=== PATIENT | male | born 1960 | race African-American/Black ===

== ENCOUNTER 2016-11-13 21:14 | Emergency (ER) | payer BC, OTHER ==
[2016-11-14 00:21] LABS: ABSOLUTE BASOPHILS # (AUTO) 0.1 10^3/uL (0.0-0.2); ABSOLUTE EOSINOPHILS # (AUTO) 0.3 10^3/uL (0.0-0.6); ABSOLUTE LYMPHOCYTES (AUTO) 2.1 10^3/uL (0.5-4.7); ABSOLUTE NEUT (AUTO) 8.3 10^3/uL (1.7-8.2); BASOPHILS % (AUTO) 0.7 % (0-2); EOSINOPHILS % (AUTO) 2.5 % (0-6); HEMATOCRIT 41.9 % (37.9-51.0); HEMOGLOBIN 14.2 g/dL (13.5-17.0); HGB HCT DIFFERENCE 0.7; LYMPHOCYTES % (AUTO) 17.7 % (13-45); MEAN CORPUSCULAR HEMOGLOBIN 28.9 pg (27.0-33.4); MEAN CORPUSCULAR VOLUME 85 fl (80-97); MONOCYTES % (AUTO) 8.2 % (3-13); RED BLOOD COUNT 4.92 10^6/uL (4.35-5.55); RED CELL DISTRIBUTION WIDTH 13.3 % (11.5-14.0); SEGMENTED NEUTROPHILS % (AUTO) 70.9 % (42-78); WHITE BLOOD COUNT 11.7 10^3/uL (4.0-10.5)
[2016-11-14 00:38] LABS: ANION GAP 15 (5-19); BLOOD UREA NITROGEN 9 mg/dL (7-20); CALCIUM 9.3 mg/dL (8.4-10.2); CARBON DIOXIDE 27 mmol/L (22-30); CHLORIDE 101 mmol/L (98-107); CREATINE KINASE 149 U/L (55-170); CREATININE RESULT 0.84 mg/dL (0.52-1.25); GLUCOSE 109 mg/dL (75-110); POTASSIUM 4.3 mmol/L (3.6-5.0); SODIUM 142.8 mmol/L (137-145)
[2016-11-14 00:53] LABS: TROPONIN I < 0.012 ng/mL
--- NOTE | 2016-11-14 01:26 | ER Document Report ---
ED General - General Mode of Arrival: Ambulatory Information source: Patient TRAVEL OUTSIDE OF THE [place] IN LAST 30 DAYS: No - HPI Patient complains to provider of: cough Associated symptoms: Other - See above <ANNABELLE GRANADOS - Last Filed: 11/14/16 03:28> <LAURITA HERNANDEZ - Last Filed: 11/15/16 21:23> - General Chief Complaint: Cough Stated Complaint: cough Notes: Patient is a 56 year old male, with a past medical history including gout, who presents to the emergency department complaining of a cough with yellow sputum onset 5 days ago. Patient also complains of low back pain, joint pain, chest pain secondary to cough, fever, and chills. Patient denies nausea, vomiting, and diarrhea. Patient states that he does not have a PCP but went to urgent care 3 weeks ago to have his gout assessed. Patient states that all of his medications for gout have . (ANNABELLE GRANADOS) - Related Data Allergies/Adverse Reactions: No Known Allergies Allergy (Verified 11/14/16 01:40) Past Medical History - General Information source: Patient - Social History Smoking Status: Unknown if Ever Smoked Family History: Reviewed & Not Pertinent Musculoskeltal Medical History: Reports Hx Gout <ANNABELLE GRANADOS - Last Filed: 11/14/16 03:28> Review of Systems - Review of Systems Constitutional: See HPI, Chills, Fever EENT: No symptoms reported Cardiovascular: See HPI, Chest pain Respiratory: See HPI, Cough, Sputum Gastrointestinal: denies: Diarrhea, Nausea, Vomiting Genitourinary: No symptoms reported Male Genitourinary: No symptoms reported Musculoskeletal: See HPI, Other - joint pain Skin: No symptoms reported Hematologic/Lymphatic: No symptoms reported Neurological/Psychological: No symptoms reported -: Yes All other systems reviewed and negative <ANNABELLE GRANADOS - Last Filed: 11/14/16 03:28> Physical Exam - Vital signs Interpretation: Normal - General General appearance: Appears well, Alert - HEENT Head: Normocephalic, Atraumatic - Respiratory Respiratory status: No respiratory distress Chest status: Nontender Breath sounds: Normal Chest palpation: Normal - Cardiovascular Rhythm: Regular Heart sounds: Normal auscultation Murmur: No - Abdominal Inspection: Normal Distension: No distension Bowel sounds: Normal Tenderness: Nontender Organomegaly: No organomegaly - Extremities General upper extremity: Normal inspection General lower extremity: Normal inspection - Neurological Neuro grossly intact: Yes Cognition: Normal Orientation: AAOx4 Matt Coma Scale Eye Opening: Spontaneous Kinsman Coma Scale Verbal: Oriented Kinsman Coma Scale Motor: Obeys Commands Matt Coma Scale Total: 15 Speech: Normal - Psychological Associated symptoms: Normal affect, Normal mood - Skin Skin Temperature: Warm Skin Moisture: Dry Skin Color: Normal <ANNABELLE GRANADOS - Last Filed: 11/14/16 03:28> Course - Laboratory Result Diagrams: 11/13/16 23:58 11/13/16 23:58 <ANNABELEL GRANADOS - Last Filed: 11/14/16 03:28> - Laboratory Result Diagrams: 11/13/16 23:58 11/13/16 23:58 <LAURITA HERNANDEZ - Last Filed: 11/15/16 21:23> - Re-evaluation Re-evalutation: 11/14/16 01:35 Patient presents emergency, chief complaint of 3-4 day history of cough chest hurts with coughing and body aches. Specifically when he states bodyaches he says his knee. He went to the urgent care 2 weeks ago was diagnosed with gout but is out of his medication. He does not see a primary care physician. He denies any blurred vision double vision or strokelike symptoms. No neck pain stiffness or trauma. No cardiac chest pain or pain with exertion shortness breath or diaphoresis. No nausea vomiting abdominal pain on physical exam is well-appearing nontoxic in no acute distress normal neurological examination coughing mildly lungs are clear abdomen is soft no joint redness swelling rashes. Acute laboratory evaluation negative for acute pathology chest x-ray negative diagnosis acute bronchitis also refill on his gout medication. I've given him a family doctor for follow-up in 3-4 days and discussed reasons for ED return sooner (LAURITA HERNANDEZ) - Vital Signs Vital signs: Temp Pulse Resp BP Pulse Ox 99.1 F 93 18 145/89 H 92 11/14/16 01:46 11/14/16 01:46 11/14/16 01:46 11/14/16 01:46 11/14/16 01:46 - Laboratory Laboratory results interpreted by me: 11/13/16 23:58 WBC 11.7 H Absolute Neutrophils 8.3 H Discharge <ANNABELLE GRANADOS - Last Filed: 11/14/16 03:28> <LAURITA HERNANDEZ - Last Filed: 11/15/16 21:23> - Discharge Clinical Impression: myalgias Acute bronchitis Qualifiers: Bronchitis organism: unspecified organism Qualified Code(s): J20.9 - Acute bronchitis, unspecified Condition: Stable Disposition: HOME, SELF-CARE Additional Instructions: Bronchitis You have acute bronchitis. This disease is an infection or inflammation of the air passageways in your lungs. Symptoms usually include cough, low grade fever, shortness of breath, and wheezing. The cough usually persists for a couple of weeks. Most cases of bronchitis get better without antibiotics. We prescribe antibiotics when we believe bacteria are damaging your airways, or if there's high risk the bronchitis will worsen into pneumonia. Increase your fluid intake. A cool mist humidifier may make your lungs more comfortable. An expectorant (cough medicine that loosens phlegm) can help. If you smoke, STOP!!! Recovery from bronchitis can be somewhat slow, but you should see improvement within a day or two. Repeated episodes of bronchitis may result in lung damage -- for example, chronic bronchitis, recurrent pneumonias, or emphysema. Call the doctor if you develop increasing fever, shortness of breath, chest pain, bloody sputum, or otherwise worsen. If you have not improved at all after several days, contact the physician. Gout You have been diagnosed as having gout. Gout is a problem caused by an excess of uric acid, a natural chemical found in the body. The cause of this disease is unknown. Gout arthritis occurs when crystals of uric acid form in the joints. The big toe is the most common joint involved, but any joint can become affected. Persons with gout may also form uric acid kidney stones, resulting in flank pain and blood in the urine. Nodules of uric acid may form under the skin. The first step of treatment is to decrease the inflammation in the joint with antiinflammatory medication. Medication to lower the uric acid level in the blood may then be prescribed. This medication should be taken regularly, as any sudden change in dosage may provoke an attack of gout. Some foods, such as red meat, can provoke an attack in some gout sufferers. Call the doctor if new symptoms arise, or if you do not improve. Prescriptions: Albuterol Sulfate [Proair HFA Inhalation Aerosol 8.5 gm MDI] 2 puff IH Q4H PRN # 1 mdi PRN Reason: Allopurinol [Zyloprim 100 mg Tablet] 100 mg PO DAILY #30 tablet Referrals: ELY BECERRA MD [COMMUNITY BASED STAFF] - Follow up in 3-5 days (Call for an appointment to be seen in follow-up in 3-5 days return for increasing worsening or new symptoms) Scribe Attestation: 11/15/16 21:22 i personally performed the services described in the documentation, reviewed the documentation recorded by the scribe in my presence and accurately and completely records my words and actions (LAURITA HERNANDEZ) Scribe Documentation - Scribe Written by Ermelinda:: ermelinda Galeana, 11/14/16, [id number] acting as scribe for :: Curtis <ANNABELLE GRANADOS - Last Filed: 11/14/16 03:28>
[2016-11-14 01:50] VITALS: BP 145/89
--- NOTE | 2016-11-14 08:43 | EKG REPORT ---
SEVERITY:- ABNORMAL ECG - SINUS RHYTHM ABNRM R PROG, CONSIDER ASMI OR LEAD PLACEMENT : Confirmed by: Darline Gama 14-Nov-2016 08:43:01
== END 2016-11-14 01:57 | disposition home or self-care (01) ==
LOC: ER 21:14
DX: J20.9 Acute bronchitis, unspecified (principal); M10.9 Gout, unspecified; R05 Cough; M54.5 Low back pain; R07.89 Other chest pain; M25.50 Pain in unspecified joint; M79.1 Myalgia; R50.9 Fever, unspecified
CPT/HCPCS: 36415; 71010; 80048; 82550; 83880; 84484; 85025; 87804; 93005; 93010; 99284

== ENCOUNTER 2019-08-10 11:37 | Inpatient (IN) | payer BC, OTHER ==
[2019-08-10] MEDS ORDERED: IBUPROFEN 800 MG TABLET PO ONE (11:44)
[2019-08-10] MEDS ORDERED: VANCOMYCIN HCL INJ 1000 MG VIAL IV ONE ×2 (11:44→12:34)
--- NOTE | 2019-08-10 11:45 | ER Document Report ---
ED Medical Screen (RME) - General Chief Complaint: Abscess Stated Complaint: POSIBLE ABSCESS Time Seen by Provider: 08/10/19 11:42 TRAVEL OUTSIDE OF THE [place] IN LAST 30 DAYS: No - HPI Notes: 08/10/19 11:45 Patient is a 58-year-old male with no significant past medical history who presents complaining of abscess and infection that began in his axilla and is spread to his chest and into his upper arm over the past several days. Denies drug allergies. He is able to eat and drink without difficulty. He is urinating normally. Septic work-up initiated. I have treated and performed a rapid initial assessment of this patient. A comprehensive ED assessment and evaluation of the patient, analysis of test results and completion of medical decision making process will be conducted by additional ED providers. PHYSICAL EXAMINATION: GENERAL: Well-appearing, well-nourished and in no acute distress. A&Ox4. Answers questions appropriately. Skin: Patient has a very large area of cellulitis and infection to his axilla incorporating the right lateral chest as well as his right upper arm. - Related Data Allergies/Adverse Reactions: No Known Allergies Allergy (Verified 11/14/16 01:40) Past Medical History Renal/ Medical History: Denies: Hx Peritoneal Dialysis Musculoskeltal Medical History: Reports Hx Gout
[2019-08-10] MEDS ORDERED: SUCCINYLCHOLINE CHLORIDE INJ 200 MG/10 ML VIAL ONE (12:00)
[2019-08-10] MEDS: NORMAL SALINE 1000 ML 1,000 ML IV PRN ×2 (12:19→12:31)
[2019-08-10 12:29] LABS: HEMATOCRIT 43.4 % (37.9-51.0); HEMOGLOBIN 14.6 g/dL (13.5-17.0); MEAN CORPUSCULAR HEMOGLOBIN 29.4 pg (27.0-33.4); MEAN CORPUSCULAR HGB CONC 33.7 g/dL (32.0-36.0); MEAN CORPUSCULAR VOLUME 87 fl (80-97); PLATELET COUNT 279 10^3/uL (150-450); RED BLOOD COUNT 4.98 10^6/uL (4.35-5.55); RED CELL DISTRIBUTION WIDTH 12.6 % (11.5-14.0); WHITE BLOOD COUNT 16.7 10^3/uL (4.0-10.5)
[2019-08-10 12:30] LABS: VENOUS BLOOD BASE EXCESS 4.1 mmol/L; VENOUS BLOOD HCO3 27.1 mmol/L (20-32); VENOUS BLOOD PH 7.5 (7.30-7.42)
[2019-08-10 12:33] LABS: INTERNATIONAL RATION (INR) 1.12; PROTHROMBIN TIME 14.5 SEC (11.4-15.4)
[2019-08-10] MEDS ORDERED: HYDROMORPHONE HCL INJ/PF 2 MG/ML AMPULE IV ONE ×2 (12:34→14:55)
[2019-08-10] MEDS ORDERED: ONDANSETRON HCL INJ/PF 4 MG/2 ML SDV IV ONE (12:34)
[2019-08-10] MEDS ORDERED: PIPERACILLIN/TAZOBACTAM 3.375 GM VIAL IV ONE ×3 (12:34→21:58)
[2019-08-10] MEDS ORDERED: NORMAL SALINE 1000 ML 900 ML IV ONE (12:37)
--- NOTE | 2019-08-10 12:39 | ER Document Report ---
ED General - General Chief Complaint: Abscess Stated Complaint: POSIBLE ABSCESS Time Seen by Provider: 08/10/19 11:42 TRAVEL OUTSIDE OF THE [place] IN LAST 30 DAYS: No - HPI Notes: 58-year-old male to the emergency department with complaints of progressively worsening axillary abscess in the past week. He states that he started to develop redness to his right chest wall and to the inside of his right arm in the past couple of days after applying "boil ease" on his boil. He states that it is draining but he continues to get worse. He states that his told him that he had a subjective fever. He denies any shortness of breath. He states that he has pain where the erythema is to the right chest wall and right arm. He states that he has no past medical history. He does not take any daily med ications. He does not use IV drugs. He last ate this morning at 10 AM. His primary care physician is Dr. Talamantes. - Related Data Allergies/Adverse Reactions: No Known Allergies Allergy (Verified 11/14/16 01:40) Past Medical History - General Information source: Patient, Relative - Social History Smoking Status: Never Smoker Frequency of alcohol use: None Drug Abuse: None Lives with: Alone Family History: Reviewed & Not Pertinent Patient has suicidal ideation: No Patient has homicidal ideation: No Renal/ Medical History: Denies: Hx Peritoneal Dialysis Musculoskeletal Medical History: Reports Hx Gout Review of Systems - Review of Systems Constitutional: Fever, Malaise. denies: Chills EENT: No symptoms reported. denies: Nose congestion, Nose discharge Cardiovascular: See HPI. denies: Palpitations, Dyspnea, Syncope, Dizziness, Lightheaded Respiratory: Other - Right-sided chest wall pain; see skin. denies: Cough, Short of breath Gastrointestinal: denies: Abdominal pain, Diarrhea, Nausea, Vomiting Musculoskeletal: See HPI, Other - Right arm erythema and pain - see skin Skin: Other - erythema to the right chest wall, right axilla, right arm. abscess to the axilla Neurological/Psychological: No symptoms reported -: Yes All other systems reviewed and negative Physical Exam - Vital signs Vitals: Temp Pulse BP Pulse Ox 98.7 F 134 H 120/89 H 97 08/10/19 11:43 08/10/19 11:43 08/10/19 11:43 08/10/19 11:43 Interpretation: Tachycardic - General General appearance: Alert In distress: Moderate Notes: + moderate pain distress. patient appears ill, but is not toxic appearing - HEENT Head: Normocephalic, Atraumatic Eyes: Normal Pupils: PERRL - Respiratory Respiratory status: No respiratory distress Chest status: Tender, Pain on movement, Pain with deep breathing, Wounds - see skin further discussion of cellulitic process to chest wall. No: Accessory muscle use Breath sounds: Normal. No: Rales, Rhonchi, Stridor, Wheezing Chest palpation: Normal. No: Subcutaneous emphysema - Cardiovascular Rhythm: Regular Heart sounds: Normal auscultation Murmur: No - Abdominal Inspection: Normal Distension: No distension Bowel sounds: Normal Tenderness: Nontender. No: McBurney's point, Decker's sign, Guarding, Rebound Organomegaly: No organomegaly - Back Back: Normal, Nontender - Extremities General upper extremity: Tender - very Tender to palpation of the right arm. Patient has excruciating pain when passively manipulating the arm., Edema - + TTP and edema with erythema to the right arm from shoulder/axilla to the mid forearm. General lower extremity: Normal inspection, Nontender, Normal ROM, Normal strength, Normal temperature, Normal weight bearing - Neurological Neuro grossly intact: Yes Cognition: Normal Orientation: AAOx4 Chaplin Coma Scale Eye Opening: Spontaneous Matt Coma Scale Verbal: Oriented Matt Coma Scale Motor: Obeys Commands Matt Coma Scale Total: 15 Speech: Normal Cranial nerves: Normal Cerebellar coordination: Normal. 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 There does not appear to be any crepitus. There is an area of a small draining abscess. The area that is draining is approximately 2 cm in diameter. The erythema continues down the right arm. Predominantly it is medial and coming slightly volar on the biceps. Noted to the erythema in the biceps there is potent orange appearance to the skin. There does not appear to be any fluctuance. Again there does not appear to be any crepitus. The erythema on the arm extends all the way down to the mid forearm on the medial aspect. The erythema is not circumferential. And there is edema that is circumferential all the way to the mid forearm. It is very tender to palpation and with any sort of movement. Course - Re-evaluation Re-evalutation: 08/10/19 13:[address] Solano. Patient meets sepsis criteria with his tachycardia, leukocytosis, bandemia, lactic acidosis. Noted hyperglycemia. He has been started on an appropriately 30 cc/kg bolus of NS, covering with 1500 mg of Vanc and 3.[address] Solano examined the patient with me as well. He will certainly need admission. We have ordered a CT of the upper extremity with plan to open the window to include the right chest wall as two separate studies would have given the patient a double dose of IV contrast dye. I have reviewed this plan with the patient and his . Discussed lab findings with the patient and . When I told them about the hyperglycemia-- patient states he has been on oral DM medicines in the past but was taken off of them 6-8 months ago. Suspect he may have untreated DM. They agree with the plan. Have placed a page to the surgeon. 08/10/19 14:[address] Brasher, general surgeon on-call. He will come see the patient. He is aware of patient's lab work and sepsis. He is aware patient is getting vancomycin and Zosyn. He would like for the patient to be admitted to medicine. Spoke with Dr. Ramos, hospitalist. He accepts patient onto his service. He is aware that Dr. Brasher is going to consult. He is aware that patient meets sepsis criteria with leukocytosis, tachycardia, bandemia, lactic acidosis. He is aware that patient is gotten a 30 cc per cake fluid bolus and is also getting vancomycin and Zosyn. Updated patient and about the plan and they agree. CT results are pending but noted stranding in the right axilla and chest wall. - Vital Signs Vital signs: Temp Pulse Resp BP Pulse Ox 98.7 F 134 H 120/89 H 97 08/10/19 11:43 08/10/19 11:43 08/10/19 11:43 08/10/19 11:43 - Laboratory Result Diagrams: 08/10/19 12:00 08/10/19 12:00 Laboratory results interpreted by me: 08/10/19 08/10/19 08/10/19 12:00 12:00 12:00 WBC 16.7 H Band Neutrophils % 10 H Lymphocytes % (Manual) 6 L Abs Neuts (Manual) 14.2 H Abs Monocytes (Manual) 1.5 H VBG pH 7.50 H Sodium 129.6 L Potassium 3.3 L Chloride 87 L Creatinine 1.27 H Est GFR (MDRD) Non-Af 58 L Glucose 309 H Lactic Acid Calcium 8.1 L Direct Bilirubin 0.6 H Albumin 3.2 L 08/10/19 12:00 WBC Band Neutrophils % Lymphocytes % (Manual) Abs Neuts (Manual) Abs Monocytes (Manual) VBG pH Sodium Potassium Chloride Creatinine Est GFR (MDRD) Non-Af Glucose Lactic Acid 3.6 H Calcium Direct Bilirubin Albumin Critical Care Note - Critical Care Note Total time excluding time spent on procedures (mins): 67 Comments: 67 minutes of critical care time was spent on patient between bedside education with patient and family, consultation, and directing patient care for sepsis. Discharge - Discharge Clinical Impression: Abscess of right axilla Sepsis Qualifiers: Sepsis type: sepsis due to unspecified organism Sepsis acute organ dysfunction status: unspecified Qualified Code(s): A41.9 - Sepsis, unspecified organism Cellulitis Qualifiers: Site of cellulitis: extremity Site of cellulitis of extremity: upper extremity Laterality: right Qualified Code(s): L03.113 - Cellulitis of right upper limb Condition: Stable Disposition: ADMITTED INPATIENT Admitting Provider: Richard (Hospitalist) Unit Admitted: [facility] ED Sepsis - Sepsis Documentation Sepsis Patient: Yes - Vital Signs Interpretation: Tachycardic - Cardiovascular Peripheral Pulse Strength: Normal Capillary refill: < 3 seconds Rhythm: Tachycardia Heart Sounds: Normal auscultation, S1 appreciated, S2 appreciated - Respiratory Breath sounds: Clear Respiratory Status: No respiratory distress - Skin Skin Color: Erythema - erythema to the right chest wall and to the right arm - Bedside Cardiovascular Ultrasound Was a bedside Cardiovascular Ultrasound performed?: No - Fluid Challenge Was the patient given a fluid challenge?: No
[2019-08-10 12:47] LABS: ALBUMIN 3.2 g/dL (3.5-5.0); ALKALINE PHOSPHATASE 90 U/L (38-126); ANION GAP 17 (5-19); ASPARTATE AMINO TRANSFERASE 27 U/L (17-59); BILIRUBIN,DIRECT 0.6 mg/dL (0.0-0.4); BILIRUBIN,TOTAL 1.1 mg/dL (0.2-1.3); BLOOD UREA NITROGEN 16 mg/dL (7-20); CALCIUM 8.1 mg/dL (8.4-10.2); CARBON DIOXIDE 26 mmol/L (22-30); CHLORIDE 87 mmol/L (98-107); GLUCOSE 309 mg/dL (75-110); POTASSIUM 3.3 mmol/L (3.6-5.0); TOTAL PROTEIN 6.6 g/dL (6.3-8.2)
[2019-08-10 12:54] LABS: ABSOLUTE MONOCYTES # (MANUAL) 1.5 10^3/uL (0.1-1.4); BAND NEUTROPHILS % (MANUAL) 10 % (3-5); BASOPHILS % (MANUAL) 0 % (0-2); EOSINOPHILS % (MANUAL) 0 % (0-6); LYMPHOCYTES % (MANUAL) 6 % (13-45); MONOCYTES % (MANUAL) 9 % (3-13); SEGMENTED NEUTROPHILS % (MAN) 75 % (42-78); TOTAL CELLS COUNTED 100
[2019-08-10 12:55] LABS: PLATELET COMMENT ADEQUATE; TOXIC GRANULATION 1+; TOXIC VACUOLATION PRESENT
[2019-08-10] MEDS ORDERED: CEFTRIAXONE 1 GM/D5W RTU 1 GM/50 ML RTUPB IV ONE (13:00)
[2019-08-10] MEDS ORDERED: ACETAMINOPHEN 325 MG TABLET PO PRN (14:27)
[2019-08-10] MEDS ORDERED: NORMAL SALINE 1000 ML 1,000 ML IV PRN ×2 (14:27→18:28)
[2019-08-10] MEDS ORDERED: IPRATROPIUM/ALBUTEROL 0.5-2.5 MG/3 ML AMPUL NEB PRN (14:27)
[2019-08-10] MEDS ORDERED: ONDANSETRON HCL INJ/PF 4 MG/2 ML SDV IV PRN (14:27)
[2019-08-10] MEDS ORDERED: GLUCAGON,HUMAN RECOMB 1 MG INJ IM PRN (14:31)
[2019-08-10] MEDS ORDERED: DEXTROSE 40% GEL 15 GM TUBE PO PRN ×2 (14:31)
[2019-08-10] MEDS ORDERED: DEXTROSE 50%-WATER 25 GM/50 ML DISP.SYRIN IV PRN ×2 (14:31)
--- NOTE | 2019-08-10 14:40 | RADIOLOGY REPORT (SQ) ---
EXAM DESCRIPTION: CT RT UPPER EXTREMITY WITH COMPLETED DATE/TIME: 08/10/2019 1:16 pm REASON FOR STUDY: streaking cellulitis on right arm . Right arm and right chest swelling and rednes s. COMPARISON: None TECHNIQUE: [facility] with reformatted oblique coronal and ob lique sagittal imaging windowed for bone and soft tissues. All CT scanners at this facility use dose modulation, iterative reconstruction, and/or weight based d osing when appropriate to reduce radiation dose to as low as reasonably achievable (ALARA). [facility]: Dose Right [facility]: CareDose [facility]: Dose Right [facility]: Teradose 4D [facility]: [employer] RADIATION DOSE: CT Rad equipment meets quality standard of care and radiation dose reduction techniq ues were employed. CTDIvol: 3.9 mGy. DLP: 374 mGy-cm. mGy. LIMITATIONS: None. FINDINGS: SOFT TISSUES: There is skin thickening and subcutaneous edema involving the right axilla a nd right lateral chest wall to the level of the lower ribs. Mild subcutaneous edema and skin thicken ing involving the medial right upper arm. No focal drainable abscess. No radiopaque foreign body. Small reactive right axillary lymph nodes without abdifatah adenopathy. BONY ARCHITECTURE: No acute fracture or cortical disruption. Normal glenohumeral joint alignment. N ormal acromioclavicular alignment. No lytic or blastic bone lesion. No acute rib fractures. GLENOHUMERAL JOINT: Normal. ACROMION AND AC JOINT: Normal. ROTATOR CUFF: Unremarkable. GLENOID, LABRUM AND BICEPS: Labrum is not well visualized. Muscles have normal appearance. OTHER: No other significant finding. IMPRESSION: Diffuse skin thickening and subcutaneous edema involving the right insula, medial right upper arm, and right lateral chest wall. No focal drainable abscess or underlying bone lesion. TECHNICAL DOCUMENTATION: JOB ID: [id number] Quality ID # [id number]: Final reports with documentation of one or more dose reduction techniques (e.g., Au tomated exposure control, adjustment of the mA and/or kV according to patient size, use of iterative reconstruction technique) 2010 [employer]- All Rights Reserved Reading location - IP/workstation name: [email or web address]
--- NOTE | 2019-08-10 14:44 | PDOC H&P ---
History of Present Illness Admission Date/PCP: 08/10/19 14:18 KYE MERCHANT MD History of Present Illness: NANCY VALADEZ is a 58 year old male past medical history of diabetes not on antidiabetic, presenting to ED complaining of right axillary and right chest tenderness and swelling. Patient is stating that about 9 days ago he felt a mass in his right armpit, initially he did some warm compresses which is not resolved the mass, he noticed it was getting bigger and more tender, 4 days ago he decided to squeeze it and he noticed pus coming out of the mass and after that he noticed that the swelling and tenderness got progressively worse and extended to his right upper extremity and right chest. He is also complaining of right axillary pain 5/5, constant, worse with movement, nonradiating associated with fever and chills at home and 2 episodes of nonbloody vomiting yesterday and one episode of nonbloody diarrhea. Today he is denying any nausea, vomiting, shortness of breath, chest pain, abdominal pain, diarrhea, constipation or any urinary symptoms. Past Medical History Musculoskeltal Medical History: Reports: Gout Social History Lives with: Alone Smoking Status: Never Smoker Family History Family History: Reviewed & Not Pertinent, CAD Parental Family History Reviewed: Yes Children Family History Reviewed: Yes Sibling(s) Family History Reviewed.: Yes Medication/Allergy Home Medications: Albuterol Sulfate [Proair HFA Inhalation Aerosol 8.5 gm MDI] 2 puff IH Q4H PRN #1 mdi 11/14/16 Allopurinol [Zyloprim 100 mg Tablet] 100 mg PO DAILY #30 tablet 11/14/16 Allergies/Adverse Reactions: No Known Allergies Allergy (Verified 11/14/16 01:40) Review of Systems Review of Systems: as per hpi Physical Exam Vital Signs: Temp Pulse Resp BP Pulse Ox 98.7 F 134 H 120/89 H 97 08/10/19 11:43 08/10/19 11:43 08/10/19 11:43 08/10/19 11:43 Intake & Output 08/09/19 08/10/19 08/11/19 06:59 06:59 06:59 Intake Total 2100 Balance 2100 Weight 95.2 kg General appearance: PRESENT: no acute distress, well-developed, well-nourished Head exam: PRESENT: atraumatic, normocephalic Respiratory exam: PRESENT: clear to auscultation belinda. ABSENT: rales, rhonchi, wheezes Cardiovascular exam: PRESENT: RRR. ABSENT: diastolic murmur, rubs, systolic murmur GI/Abdominal exam: PRESENT: normal bowel sounds, soft. ABSENT: distended, guarding, mass, organolmegaly, rebound, tenderness Rectal exam: PRESENT: deferred Extremities exam: PRESENT: tenderness, other - Right axillary region extensive swelling, erythema, TTP, swelling and erythema extending proximally to the elbow and right pectoralis region. Right shoulder range of motion limited by pain. Neurovascularly intact. Results Laboratory Results: 08/10/19 12:00 08/10/19 12:00 08/10/19 08/10/19 08/10/19 12:00 12:00 12:00 WBC 16.7 H RBC 4.98 Hgb 14.6 Hct 43.4 MCV 87 MCH 29.4 MCHC 33.7 RDW 12.6 Plt Count 279 Seg Neutrophils % Not Reportable VBG pH 7.50 H VBG pCO2 36.0 VBG HCO3 27.1 VBG Base Excess 4.1 Sodium 129.6 L Potassium 3.3 L Chloride 87 L Carbon Dioxide 26 Anion Gap 17 BUN 16 Creatinine 1.27 H Est GFR ( Amer) > 60 Glucose 309 H Lactic Acid Calcium 8.1 L Total Bilirubin 1.1 AST 27 Alkaline Phosphatase 90 Total Protein 6.6 Albumin 3.2 L 08/10/19 12:00 WBC RBC Hgb Hct MCV MCH MCHC RDW Plt Count Seg Neutrophils % VBG pH VBG pCO2 VBG HCO3 VBG Base Excess Sodium Potassium Chloride Carbon Dioxide Anion Gap BUN Creatinine Est GFR ( Amer) Glucose Lactic Acid 3.6 H Calcium Total Bilirubin AST Alkaline Phosphatase Total Protein Albumin Assessment and Plan - Diagnosis (1) Abscess of right axilla Is this a current diagnosis for this admission?: Yes Plan: Extensive right axillary abscess. CT right axillary pending at the time of dictation. Surgery consulted and patient is scheduled for I&D this afternoon. Empiric IV antibiotics, n.p.o., volume resuscitation guided by volume status. (2) Sepsis Qualifiers: Sepsis type: sepsis due to unspecified organism Sepsis acute organ dysfunction status: unspecified Qualified Code(s): A41.9 - Sepsis, unspecified organism Is this a current diagnosis for this admission?: Yes Plan: Most likely due to right axillary abscess. Presented with leukocytosis with bandemia, elevated creatinine, elevated lactic acid, elevated total bilirubin and tachycardia. Admit to IMCU, aggressive volume resuscitation guided by volume status, trend lactic acid, empiric broad-spectrum IV antibiotics, blood culture, wound culture. (3) Diabetes Qualifiers: Diabetes mellitus type: type 2 Is this a current diagnosis for this admission?: Yes Plan: Uncontrolled. Not treated. No A1c available. Presented with blood glucose level of 309. Used to take oral antidiabetic but was taken off by PCP. Diabetic diet, basal, prandial and correctional insulin, hypoglycemia protocol, Accu-Chek. We will check A1c. (4) RENÉE (acute kidney injury) Is this a current diagnosis for this admission?: Yes Plan: Prerenal. Most likely due to underlying sepsis. Volume resuscitation guided by volume status, monitor electrolytes and replace as needed, avoid nephrotoxic meds.
--- NOTE | 2019-08-10 14:52 | PDOC CONSULTATION ---
Consultation Consult Date: 08/10/19 Attending physician:: GINETTE FOSTER Provider Consulted: SAWYER MARTÍNEZ Consult reason:: chest wall abscess History of Present Illness Admission Date/PCP: 08/10/19 14:18 KYE MERCHATN MD History of Present Illness: NANCY VALADEZ is a 58 year old male to the emergency department with complaints of progressively worsening axillary abscess in the past week. He states that he started to develop redness to his right chest wall and to the inside of his right arm in the past couple of days after applying "boil ease" on his boil. He states that it is draining but he continues to get worse. He states that his told him that he had a subjective fever. He denies any shortness of breath. He states that he has pain where the erythema is to the right chest wall and right arm. He states that he has no past medical history. He does not take any daily medications. He does not use IV drugs. He last ate this morning at 10 AM. His primary care physician is Dr. Talamantes. although he was taking antibyperglycemics at one point but these have been stopped. Past Medical History Musculoskeltal Medical History: Reports: Gout Social History Lives with: Alone Smoking Status: Never Smoker - Advance Directive Resuscitation Status: Full Code Family History Family History: Reviewed & Not Pertinent Parental Family History Reviewed: No Children Family History Reviewed: NA Sibling(s) Family History Reviewed.: NA Medication/Allergy Home Medications: Albuterol Sulfate [Proair HFA Inhalation Aerosol 8.5 gm MDI] 2 puff IH Q4H PRN #1 mdi 11/14/16 Allopurinol [Zyloprim 100 mg Tablet] 100 mg PO DAILY #30 tablet 11/14/16 Allergies/Adverse Reactions: No Known Allergies Allergy (Verified 11/14/16 01:40) Review of Systems Constitutional: PRESENT: anorexia, chills, fatigue Eyes: ABSENT: as per HPI, visual disturbances, other Ears: ABSENT: as per HPI, hearing changes, other Nose, Mouth, and Throat: ABSENT: as per HPI, headache(s), mouth pain, sore throat, vertigo, other Breasts: PRESENT: as per HPI Cardiovascular: ABSENT: as per HPI, chest pain, dyspnea on exertion, edema, orthropnea, palpitations, other Respiratory: ABSENT: as per HPI, cough, dyspnea, hemoptysis, sputum, other Gastrointestinal: ABSENT: as per HPI, abdominal pain, bloating, coffee ground emesis, constipation, diarrhea, dysphagia, heartburn, hematemesis, hematochezia, melena, nausea, vomiting, other Musculoskeletal: ABSENT: as per HPI, back pain, deformity, joint swelling, muscle weakness, other Integumentary: PRESENT: erythema, lesions, wounds Neurological: ABSENT: as per HPI, abnormal gait, abnormal movements, abnormal speech, confusion, convulsions, dizziness, focal weakness, frequent falls, lack of coordination, memory loss, numbness, paresthesias, restless legs, syncope, tingling, tremor(s), vertigo, weakness, other Psychiatric: ABSENT: as per HPI, anxiety, depression, hallucinations, homidical ideation, suicidal ideation, other Endocrine: ABSENT: as per HPI, cold intolerance, flushing, heat intolerance, menstrual abnormalities, polydipsia, polyphagia, polyuria, other Allergic/Immunologic: ABSENT: as per HPI, seasonal rhinorrhea, other Physical Exam Vital Signs: Temp Pulse Resp BP Pulse Ox 98.7 F 134 H 120/89 H 97 08/10/19 11:43 08/10/19 11:43 08/10/19 11:43 08/10/19 11:43 Intake & Output 08/09/19 08/10/19 08/11/19 06:59 06:59 06:59 Intake Total 2100 Balance 2100 Weight 95.2 kg General appearance: PRESENT: mild distress Head exam: PRESENT: normocephalic Eye exam: PRESENT: EOMI Ear exam: PRESENT: normal external ear exam Mouth exam: PRESENT: moist Neck exam: PRESENT: full ROM Respiratory exam: PRESENT: chest wall tenderness - large area of tense swelling over rt anterior lateral chest wall extending to axillia iwth small 1cm draining area of pus extends to medial mid forarm on right. Cardiovascular exam: ABSENT: bradycardia, clicks, diastolic murmur, gallop, irregular rhythm, RRR, rubs, +S1, +S2, systolic murmur, tachycardia, other Breast: PRESENT: Drainage, Other - as described under chest wall GI/Abdominal exam: PRESENT: soft Rectal exam: PRESENT: deferred Extremities exam: PRESENT: full ROM Musculoskeletal exam: PRESENT: full ROM Neurological exam: PRESENT: alert, awake, oriented to person, oriented to place Psychiatric exam: PRESENT: appropriate affect Skin exam: PRESENT: dry Results Laboratory Results: 08/10/19 12:00 08/10/19 12:00 08/10/19 08/10/19 08/10/19 12:00 12:00 12:00 WBC 16.7 H RBC 4.98 Hgb 14.6 Hct 43.4 MCV 87 MCH 29.4 MCHC 33.7 RDW 12.6 Plt Count 279 Seg Neutrophils % Not Reportable VBG pH 7.50 H VBG pCO2 36.0 VBG HCO3 27.1 VBG Base Excess 4.1 Sodium 129.6 L Potassium 3.3 L Chloride 87 L Carbon Dioxide 26 Anion Gap 17 BUN 16 Creatinine 1.27 H Est GFR ( Amer) > 60 Glucose 309 H Lactic Acid Calcium 8.1 L Total Bilirubin 1.1 AST 27 Alkaline Phosphatase 90 Total Protein 6.6 Albumin 3.2 L 08/10/19 12:00 WBC RBC Hgb Hct MCV MCH MCHC RDW Plt Count Seg Neutrophils % VBG pH VBG pCO2 VBG HCO3 VBG Base Excess Sodium Potassium Chloride Carbon Dioxide Anion Gap BUN Creatinine Est GFR ( Amer) Glucose Lactic Acid 3.6 H Calcium Total Bilirubin AST Alkaline Phosphatase Total Protein Albumin Impressions: Upper Extremity CT 08/10/19 12:35 IMPRESSION: Diffuse skin thickening and subcutaneous edema involving the right insula, medial right upper arm, and right lateral chest wall. No focal drainable abscess or underlying bone lesion. Assessment & Plan - Plan Summary Plan Summary: impression: large rtsided axillary abscess extending to anterior lateral chest wall and medial upper forearm plan to or for excisional debridement and drainage loss of large amts of chest wall skin as well as medial forearm skin and possible nerve damage and muscle weakness may result. need for additional surgery may occur. sepsis , , may occur pt agrees to proceed.
[2019-08-10] MEDS: INSULIN GLARGINE,HUM.REC.ANLOG 1,000 UNIT/10 ML VIAL SUBCUT SCH (15:19)
--- NOTE | 2019-08-10 15:22 | ER Document Report ---
Doctor's Note Notes: 08/10/19 15:20 Patient seen in conjunction with the physician social worker assistant. Please see her note correlate with mine. In short, this is a 58-year-old gentleman who has had a developing abscess and cellulitis to the right axillary region over the last week. On arrival he is markedly tachycardic. Physical exam reveals an abscess in the right axillary region with extensive edema to the right upper extremity and erythema and edema to the right chest wall. It is difficult to determine the extent given the history of hoff to the anterior chest wall on the left. I do not appreciate any significant crepitance Ergas on palpation, but it is markedly tender to palpation. Right upper extremity is neurovascularly intact. Laboratory investigations revealed a significant leukocytosis with bandemia. Hyponatremia is noted as well. He is given IV fluids. He is given Zosyn and vancomycin. Early surgical consult was obtained, and CT scan ordered. The patient does have an extensive cellulitic changes to the chest wall. Surgery and internal medicine will care for the patient. He will be admitted for further care, unfortunately his OR time will be delayed secondary to his non- n.p.o. status. He did have breakfast prior to arrival.
[2019-08-10] MEDS ORDERED: MEPERIDINE HCL/PF INJ 25 MG/1 ML DISP.SYRIN IV PRN (16:15)
[2019-08-10] MEDS ORDERED: PROMETHAZINE HCL INJ 25 MG/1 ML VIAL IV PRN (16:15)
[2019-08-10] MEDS ORDERED: FENTANYL CITRATE INJ/PF 100 MCG/2 ML AMPUL IV PRN ×3 (16:15)
[2019-08-10] MEDS ORDERED: DIPHENHYDRAMINE HCL 50 MG/ML VIAL IV PRN (16:15)
[2019-08-10] MEDS ORDERED: MORPHINE SULFATE 10 MG/ML INJ IV PRN (16:15)
[2019-08-10] MEDS ORDERED: FENTANYL CITRATE INJ/PF 100 MCG/2 ML AMPUL ONE (16:33)
[2019-08-10] MEDS ORDERED: MIDAZOLAM 2 MG/2 ML INJ ONE (16:33)
[2019-08-10] MEDS ORDERED: ONDANSETRON HCL INJ/PF 4 MG/2 ML SDV ONE (16:33)
[2019-08-10] MEDS ORDERED: PROPOFOL INJ 200 MG/20 ML VIAL IV ONE (16:34)
[2019-08-10] MEDS ORDERED: BUPIVACAINE HCL 0.25 % INJ/PF (2.5 MG/1 ML) 30 ML VIAL ONE (16:49)
[2019-08-10] MEDS ORDERED: POTASSI CL 20 MEQ/50 ML RIDER 20 MEQ/50 ML RTUPB IV ONE (17:30)
[2019-08-10] MEDS ORDERED: METOPROLOL TARTRATE PF/INJ 5 MG/5 ML SDV IV PRN (18:30)
[2019-08-10] MEDS ORDERED: HYDRALAZINE HCL INJ/PF 20 MG/1 ML SDV IV PRN (18:30)
[2019-08-10] MEDS ORDERED: VANCOMYCIN HCL 0 MG in DEXTROSE 5%-WATER 250 ML IV NR (18:30)
[2019-08-10] MEDS ORDERED: PIPERACILLIN/TAZOBACTAM 3.375 GM VIAL IV PRN (18:36)
--- NOTE | 2019-08-10 18:43 | Operative Report ---
Nonrecallable Operative Report DATE OF SURGERY: 08/10/19 PREOPERATIVE DIAGNOSIS: rt chest wall necrotizing fasciitis POSTOPERATIVE DIAGNOSIS: Right chest wall and upper arm necrotizing fasciitis OPERATION: Incision and drainage debridement of right chest wall necrotizing fasciitis and right upper arm fasciitis SURGEON: SAWYER MARTÍNEZ ANESTHESIA: GA TISSUE REMOVED OR ALTERED: Purulent material and fatty tissue from the right chest wall as well as some necrotic muscle from the right chest wall including portions of the pectoralis major. COMPLICATIONS: None ESTIMATED BLOOD LOSS: 200 cc INTRAOPERATIVE FINDINGS: See dictation PROCEDURE: Patient was brought to the operating room awake and alert condition placed on the upper table supine position to some general stage intubated patient had a longstanding abscess with a severe cellulitis over the right anterior lateral chest wall up into the axilla and down the medial upper arm. His arm was swollen with bullae expanding on the skin in the medial right upper arm. The axilla was prepped and draped as well as the chest wall and right arm and after appropriate timeout and site verification the procedure commenced. An elliptical incision was made just inferior to the axilla from the coracoid process on the anterior chest wall to the latissimus dorsi we then ellipsed out the punctate draining abscess in the axilla with that elliptical incision that was approximately 15 cm long by 4 cm wide once we did this a large amount of pus emanated from the subcutaneous tissue a continued down through the superficial fatty tissue with Bovie cautery until reaching the axilla and incising the clavipectoral fascia once this was done a large amount of pus exuded from the wound the muscle itself appeared to be functional and perfused but the fibrofatty tissue in the axilla was involved in this purulent material I excised it with Bovie cautery. The dissection continued down to the chest wall and I identified the pectoralis major muscle as I lifted the pectoralis major muscle and created a plane between that and the pectoralis minor muscle large amount of pus exuded from between the muscle bellies extending up to the first rib. I was able to slide my hand up between the pectoralis major muscle up towards the apex of the chest and continue to identify a purulent material that was draining a copious used a retractor to retract the pectoralis major muscle cephalad and was able to irrigate and clear out that intermuscular space Once the axilla was cleared out of the necrotic fibrofatty tissue and purulent material I turned attention to the right upper arm. The right upper arm was very swollen and tense compatible with a possible compartment syndrome there were bullae over this skin consistent with the acute swelling I made a longitudinal incision from the axillary crease down to the mid upper arm and the medial aspect once this was done there was a large amount of serous fluid that emanated from the subcutaneous tissue consistent with the swelling continued our dissection down through the fascia with a Bovie cautery once this was opened there was a moderate amount of pus that exuded from the wound that extended up towards the axilla and in fact connected with the wound in the axilla along the chest wall. This was widely open with digital dissection once this was completely open the muscle bellies were examined and they appear to be viable and perfused. The this wound was then copiously irrigated with normal saline clearing out all the purulent material and then both the wound on the medial arm and on the chest wall were packed with a Betadine soaked Kerlix gauze and then a sterile dressing was applied which completed the procedure. Estimated blood loss for the procedure was 200 cc sponge and needle counts were correct x2 patient was then transferred recovery in stable condition
[2019-08-10] MEDS: INSULIN LISPRO 100 UNIT/ML 3 ML VIAL SUBCUT SCH ×2 (20:01→21:50)
[2019-08-10 20:04] LABS: HEMATOCRIT 37.8 % (37.9-51.0); MEAN CORPUSCULAR HEMOGLOBIN 29.2 pg (27.0-33.4); MEAN CORPUSCULAR HGB CONC 33.1 g/dL (32.0-36.0); MEAN CORPUSCULAR VOLUME 88 fl (80-97); PLATELET COUNT 253 10^3/uL (150-450); RED BLOOD COUNT 4.27 10^6/uL (4.35-5.55); RED CELL DISTRIBUTION WIDTH 12.9 % (11.5-14.0); WHITE BLOOD COUNT 13.4 10^3/uL (4.0-10.5)
[2019-08-10 20:12] LABS: HEMOGLOBIN 12.5 g/dL (13.5-17.0)
[2019-08-10 20:21] LABS: ANION GAP 10 (5-19); BLOOD UREA NITROGEN 13 mg/dL (7-20); CARBON DIOXIDE 24 mmol/L (22-30); CHLORIDE 99 mmol/L (98-107); GLUCOSE 232 mg/dL (75-110); POTASSIUM 3.2 mmol/L (3.6-5.0)
[2019-08-10 20:33] LABS: ABSOLUTE LYMPHOCYTES# (MANUAL) 0.7 10^3/uL (0.5-4.7); ABSOLUTE MONOCYTES # (MANUAL) 0.4 10^3/uL (0.1-1.4); BAND NEUTROPHILS % (MANUAL) 6 % (3-5); BASOPHILS % (MANUAL) 0 % (0-2); EOSINOPHILS % (MANUAL) 0 % (0-6); LYMPHOCYTES % (MANUAL) 5 % (13-45); MONOCYTES % (MANUAL) 3 % (3-13); PLATELET COMMENT ADEQUATE; RBC MORPHOLOGY COMMENT NORMO-CYTIC/CHROMIC; SEGMENTED NEUTROPHILS % (MAN) 86 % (42-78); TOTAL CELLS COUNTED 100; TOXIC GRANULATION 1+
[2019-08-10 20:39] LABS: CALCIUM 6.7 mg/dL (8.4-10.2)
[2019-08-10] MEDS: OXYCODONE-ACETAMINOPHEN 5-325 MG TABLET PO PRN (20:41)
[2019-08-10] MEDS ORDERED: VANCOMYCIN HCL INJ 1000 MG VIAL IV PRN (20:43)
[2019-08-10] MEDS: FAMOTIDINE 20 MG TABLET PO SCH (21:48)
[2019-08-10] MEDS: PIPERACILLIN SODIUM/TAZOBACTAM 3.375 GM in NORMAL SALINE 100 ML IV SCH (21:49)
[2019-08-10] MEDS ORDERED: POTASSIUM CHLORIDE 10 MEQ TABLET.ER PO ONE (22:00)
[2019-08-10] MEDS: HYDROMORPHONE HCL INJ/PF 2 MG/ML AMPULE IV PRN (23:15)
[2019-08-11] MEDS ORDERED: VANCOMYCIN HCL 1,000 MG in DEXTROSE 5%-WATER 250 ML IV ONE (02:00)
[2019-08-11] MEDS ORDERED: INFLUENZA QUAD (6MOS+) 2019-20 VAC 0.5 ML SYR IM ONE (02:46)
[2019-08-11] MEDS: PIPERACILLIN SODIUM/TAZOBACTAM 3.375 GM in NORMAL SALINE 100 ML IV SCH ×4 (04:14→22:38)
[2019-08-11 06:30] LABS: HEMATOCRIT 34.4 % (37.9-51.0); HEMOGLOBIN 11.7 g/dL (13.5-17.0); MEAN CORPUSCULAR HEMOGLOBIN 29.5 pg (27.0-33.4); MEAN CORPUSCULAR HGB CONC 33.9 g/dL (32.0-36.0); MEAN CORPUSCULAR VOLUME 87 fl (80-97); PLATELET COUNT 229 10^3/uL (150-450); RED BLOOD COUNT 3.95 10^6/uL (4.35-5.55); RED CELL DISTRIBUTION WIDTH 12.7 % (11.5-14.0); WHITE BLOOD COUNT 14.5 10^3/uL (4.0-10.5)
[2019-08-11 06:53] LABS: CHOLESTEROL 82.17 mg/dL (0-200); TRIGLYCERIDES 123 mg/dL (<150)
[2019-08-11 06:55] LABS: ALBUMIN 2.3 g/dL (3.5-5.0); ALKALINE PHOSPHATASE 67 U/L (38-126); ANION GAP 11 (5-19); ASPARTATE AMINO TRANSFERASE 23 U/L (17-59); BILIRUBIN,DIRECT 0.4 mg/dL (0.0-0.4); BILIRUBIN,TOTAL 0.6 mg/dL (0.2-1.3); BLOOD UREA NITROGEN 11 mg/dL (7-20); CARBON DIOXIDE 25 mmol/L (22-30); CHLORIDE 96 mmol/L (98-107); GLUCOSE 186 mg/dL (75-110); POTASSIUM 3.2 mmol/L (3.6-5.0); TOTAL PROTEIN 5.1 g/dL (6.3-8.2)
[2019-08-11 07:04] LABS: DIRECT LDL 46 mg/dL (<100)
[2019-08-11 07:08] LABS: CALCIUM 6.7 mg/dL (8.4-10.2)
[2019-08-11] MEDS ORDERED: CALCIUM GLUCONATE 1000 MG/10 ML INJ IV ONE (07:31)
[2019-08-11] MEDS ORDERED: POTASSIUM CHLORIDE 10 MEQ TABLET.ER PO SCH (08:00)
--- NOTE | 2019-08-11 08:02 | PDOC PROGRESS REPORT ---
Subjective Progress Note for:: 08/11/19 Subjective:: feels better, less arm pain Reason For Visit: SEPSIS, RIGHT AXILLARY ABSCESS, DIABETES Physical Exam Vital Signs: Temp Pulse Resp BP Pulse Ox 98.4 F 99 18 102/74 94 08/11/19 03:23 08/11/19 07:00 08/11/19 03:23 08/11/19 03:23 08/11/19 03:23 Intake & Output 08/10/19 08/11/19 08/12/19 06:59 06:59 06:59 Intake Total 6450 100 Output Total 2300 Balance 4150 100 Weight 104.2 kg General appearance: PRESENT: mild distress Head exam: PRESENT: normocephalic Eye exam: PRESENT: EOMI Ear exam: PRESENT: normal external ear exam Mouth exam: PRESENT: moist Neck exam: PRESENT: full ROM Respiratory exam: PRESENT: clear to auscultation belinda Cardiovascular exam: PRESENT: RRR Pulses: PRESENT: normal radial pulses, normal femoral pulses Vascular exam: PRESENT: normal capillary refill Breast: PRESENT: Other - right lat chest wall/breast with min purulent drainage, min necrosis dressing changed GI/Abdominal exam: PRESENT: soft Gentrourinary exam: PRESENT: other - medial rt upper arm with long incision, still with some bulla, no drainage from wound, no necrosis Extremities exam: PRESENT: +2 edema Musculoskeletal exam: PRESENT: full ROM, tenderness Neurological exam: PRESENT: alert, awake, oriented to person, oriented to place Psychiatric exam: PRESENT: appropriate affect Skin exam: PRESENT: dry Results Laboratory Results: 08/11/19 04:43 08/11/19 04:43 08/10/19 08/10/19 08/10/19 12:00 12:00 12:00 WBC 16.7 H RBC 4.98 Hgb 14.6 Hct 43.4 MCV 87 MCH 29.4 MCHC 33.7 RDW 12.6 Plt Count 279 Seg Neutrophils % Not Reportable VBG pH 7.50 H VBG pCO2 36.0 VBG HCO3 27.1 VBG Base Excess 4.1 Sodium 129.6 L Potassium 3.3 L Chloride 87 L Carbon Dioxide 26 Anion Gap 17 BUN 16 Creatinine 1.27 H Est GFR ( Amer) > 60 Glucose 309 H Lactic Acid Calcium 8.1 L Magnesium Total Bilirubin 1.1 AST 27 Alkaline Phosphatase 90 Total Protein 6.6 Albumin 3.2 L Triglycerides Cholesterol LDL Cholesterol Direct VLDL Cholesterol HDL Cholesterol 08/10/19 08/10/19 08/10/19 12:00 15:30 19:40 WBC RBC Hgb Hct MCV MCH MCHC RDW Plt Count Seg Neutrophils % VBG pH VBG pCO2 VBG HCO3 VBG Base Excess Sodium Potassium Chloride Carbon Dioxide Anion Gap BUN Creatinine Est GFR ( Amer) Glucose Lactic Acid 3.6 H 2.1 3.8 H Calcium Magnesium Total Bilirubin AST Alkaline Phosphatase Total Protein Albumin Triglycerides Cholesterol LDL Cholesterol Direct VLDL Cholesterol HDL Cholesterol 08/10/19 08/10/19 08/11/19 19:40 19:40 04:43 WBC 13.4 H 14.5 H RBC 4.27 L 3.95 L Hgb 12.5 L D 11.7 L Hct 37.8 L 34.4 L MCV 88 87 MCH 29.2 29.5 MCHC 33.1 33.9 RDW 12.9 12.7 Plt Count 253 229 Seg Neutrophils % Not Reportable VBG pH VBG pCO2 VBG HCO3 VBG Base Excess Sodium 133.3 L Potassium 3.2 L Chloride 99 Carbon Dioxide 24 Anion Gap 10 BUN 13 Creatinine 1.18 Est GFR ( Amer) > 60 Glucose 232 H Lactic Acid Calcium 6.7 L* Magnesium Total Bilirubin AST Alkaline Phosphatase Total Protein Albumin Triglycerides Cholesterol LDL Cholesterol Direct VLDL Cholesterol HDL Cholesterol 08/11/19 08/11/19 04:43 04:43 WBC RBC Hgb Hct MCV MCH MCHC RDW Plt Count Seg Neutrophils % VBG pH VBG pCO2 VBG HCO3 VBG Base Excess Sodium 131.6 L Potassium 3.2 L Chloride 96 L Carbon Dioxide 25 Anion Gap 11 BUN 11 Creatinine 1.00 Est GFR ( Amer) > 60 Glucose 186 H Lactic Acid Calcium 6.7 L* Magnesium 2.2 Total Bilirubin 0.6 AST 23 Alkaline Phosphatase 67 Total Protein 5.1 L Albumin 2.3 L Triglycerides 123 Cholesterol 82.17 LDL Cholesterol Direct 46 VLDL Cholesterol 25.0 HDL Cholesterol 12 L Impressions: Upper Extremity CT 08/10/19 12:35 IMPRESSION: Diffuse skin thickening and subcutaneous edema involving the right insula, medial right upper arm, and right lateral chest wall. No focal drainable abscess or underlying bone lesion. Assessment & Plan - Time Time Spent with patient: 35 or more minutes - Plan Summary Plan Summary: s/p extensive debridemtn and drainage of chest wall/axillary/rt upper arm abscess/fascitis doing better today dressing changed no further purulence cellulitis on chest wall improving will cont iwt dressing changes/abx
[2019-08-11] MEDS: INSULIN LISPRO 100 UNIT/ML 3 ML VIAL SUBCUT SCH ×4 (08:04→21:48)
[2019-08-11] MEDS: HYDROMORPHONE HCL INJ/PF 2 MG/ML AMPULE IV PRN ×3 (08:04→22:38)
[2019-08-11] MEDS: NORMAL SALINE 1000 ML 1,000 ML IV PRN ×2 (08:08→22:38)
--- NOTE | 2019-08-11 10:04 | PDOC PROGRESS REPORT ---
Subjective Progress Note for:: 08/11/19 Subjective:: NANCY VALADEZ is a 58 year old male past medical history of diabetes not on antidiabetic, presenting to ED complaining of right axillary and right chest tenderness and swelling. Patient is stating that about 9 days ago he felt a mass in his right armpit, initially he did some warm compresses which is not resolved the mass, he noticed it was getting bigger and more tender, 4 days ago he decided to squeeze it and he noticed pus coming out of the mass and after that he noticed that the swelling and tenderness got progressively worse and extended to his right upper extremity and right chest. He is also complaining of right axillary pain 5/5, constant, worse with movement, nonradiating associated with fever and chills at home and 2 episodes of nonbloody vomiting yesterday and one episode of nonbloody diarrhea. Today he is denying any nausea, vomiting, shortness of breath, chest pain, abdominal pain, diarrhea, constipation or any urinary symptoms. 08/11/2019. Patient this morning comfortably sitting in bed in no apparent distress, enjoying his breakfast. Denies any fever, chills, nausea, vomiting, diarrhea, constipation or any urinary symptoms. Reason For Visit: SEPSIS, RIGHT AXILLARY ABSCESS, DIABETES Physical Exam Vital Signs: Temp Pulse Resp BP Pulse Ox 99.8 F 102 H 20 110/78 95 08/11/19 07:51 08/11/19 07:51 08/11/19 07:51 08/11/19 07:51 08/11/19 07:51 Intake & Output 08/10/19 08/11/19 08/12/19 06:59 06:59 06:59 Intake Total 6450 1350 Output Total 2300 Balance 4150 1350 Weight 104.2 kg General appearance: PRESENT: obese Head exam: PRESENT: atraumatic, normocephalic Respiratory exam: PRESENT: clear to auscultation belinda. ABSENT: rales, rhonchi, wheezes Cardiovascular exam: PRESENT: RRR. ABSENT: diastolic murmur, rubs, systolic murmur GI/Abdominal exam: PRESENT: normal bowel sounds, soft. ABSENT: distended, guarding, mass, organolmegaly, rebound, tenderness Musculoskeletal exam: PRESENT: other - Status post left axillary extensive I&D dressing intact, erythema improving, range of motion improving, neurovascularly intact. Neurological exam: PRESENT: alert, awake, oriented to person, oriented to place, oriented to time, oriented to situation, CN II-XII grossly intact. ABSENT: motor sensory deficit Results Laboratory Results: 08/11/19 04:43 08/11/19 04:43 08/10/19 08/10/19 08/10/19 12:00 12:00 12:00 WBC 16.7 H RBC 4.98 Hgb 14.6 Hct 43.4 MCV 87 MCH 29.4 MCHC 33.7 RDW 12.6 Plt Count 279 Seg Neutrophils % Not Reportable VBG pH 7.50 H VBG pCO2 36.0 VBG HCO3 27.1 VBG Base Excess 4.1 Sodium 129.6 L Potassium 3.3 L Chloride 87 L Carbon Dioxide 26 Anion Gap 17 BUN 16 Creatinine 1.27 H Est GFR ( Amer) > 60 Glucose 309 H Lactic Acid Calcium 8.1 L Magnesium Total Bilirubin 1.1 AST 27 Alkaline Phosphatase 90 Total Protein 6.6 Albumin 3.2 L Triglycerides Cholesterol LDL Cholesterol Direct VLDL Cholesterol HDL Cholesterol 08/10/19 08/10/19 08/10/19 12:00 15:30 19:40 WBC RBC Hgb Hct MCV MCH MCHC RDW Plt Count Seg Neutrophils % VBG pH VBG pCO2 VBG HCO3 VBG Base Excess Sodium Potassium Chloride Carbon Dioxide Anion Gap BUN Creatinine Est GFR ( Amer) Glucose Lactic Acid 3.6 H 2.1 3.8 H Calcium Magnesium Total Bilirubin AST Alkaline Phosphatase Total Protein Albumin Triglycerides Cholesterol LDL Cholesterol Direct VLDL Cholesterol HDL Cholesterol 08/10/19 08/10/19 08/11/19 19:40 19:40 04:43 WBC 13.4 H 14.5 H RBC 4.27 L 3.95 L Hgb 12.5 L D 11.7 L Hct 37.8 L 34.4 L MCV 88 87 MCH 29.2 29.5 MCHC 33.1 33.9 RDW 12.9 12.7 Plt Count 253 229 Seg Neutrophils % Not Reportable VBG pH VBG pCO2 VBG HCO3 VBG Base Excess Sodium 133.3 L Potassium 3.2 L Chloride 99 Carbon Dioxide 24 Anion Gap 10 BUN 13 Creatinine 1.18 Est GFR ( Amer) > 60 Glucose 232 H Lactic Acid Calcium 6.7 L* Magnesium Total Bilirubin AST Alkaline Phosphatase Total Protein Albumin Triglycerides Cholesterol LDL Cholesterol Direct VLDL Cholesterol HDL Cholesterol 08/11/19 08/11/19 04:43 04:43 WBC RBC Hgb Hct MCV MCH MCHC RDW Plt Count Seg Neutrophils % VBG pH VBG pCO2 VBG HCO3 VBG Base Excess Sodium 131.6 L Potassium 3.2 L Chloride 96 L Carbon Dioxide 25 Anion Gap 11 BUN 11 Creatinine 1.00 Est GFR ( Amer) > 60 Glucose 186 H Lactic Acid Calcium 6.7 L* Magnesium 2.2 Total Bilirubin 0.6 AST 23 Alkaline Phosphatase 67 Total Protein 5.1 L Albumin 2.3 L Triglycerides 123 Cholesterol 82.17 LDL Cholesterol Direct 46 VLDL Cholesterol 25.0 HDL Cholesterol 12 L Impressions: Upper Extremity CT 08/10/19 12:35 IMPRESSION: Diffuse skin thickening and subcutaneous edema involving the right insula, medial right upper arm, and right lateral chest wall. No focal drainable abscess or underlying bone lesion. Assessment and Plan - Diagnosis (1) Abscess of right axilla Is this a current diagnosis for this admission?: Yes Plan: Extensive right axillary abscess. Day 1 status post extensive I&D. 08/10/2019 CT scan shows diffuse skin thickening and edema involving the right axilla medial right arm and right lateral chest wall. No abscess or underlying bone lesion. Day 2 IV antibiotics. Day 2 IV vancomycin. Day 2 IV Zosyn. Continue. IV antibiotics, follow-up wound and blood culture. Continue wound dressing. Surgery following. (2) Cellulitis Qualifiers: Site of cellulitis: extremity Site of cellulitis of extremity: upper extremity Laterality: right Qualified Code(s): L03.113 - Cellulitis of right upper limb Is this a current diagnosis for this admission?: Yes Plan: As per #1. (3) Sepsis Qualifiers: Sepsis type: sepsis due to unspecified organism Sepsis acute organ dysfunction status: unspecified Qualified Code(s): A41.9 - Sepsis, unspecified organism Is this a current diagnosis for this admission?: Yes Plan: Due to problem #1. Afebrile. Vitals are stable. Leukocytosis improving. Cultures pending. Presented with leukocytosis with bandemia, elevated creatinine, elevated lactic acid, elevated total bilirubin and tachycardia. Continue empiric IV antibiotics, volume physician guided by volume status, monitor vitals. (4) Diabetes Qualifiers: Diabetes mellitus type: type 2 Is this a current diagnosis for this admission?: Yes Plan: Controlled. Hemoglobin A1c 6.7%. Presented with blood glucose level of 309. Used to take oral antidiabetic but was taken off by PCP. Continue diabetic diet, basal, prandial and correctional insulin, hypoglycemia protocol, Accu-Chek. We will discharge home on oral antidiabetics. Diabetic education. (5) RENÉE (acute kidney injury) Is this a current diagnosis for this admission?: Yes Plan: Resolved. Prerenal. Most likely due to underlying sepsis. Electrolytes WNL. Continue monitoring volume status and electrolytes and replace as needed. Avoid nephrotoxic meds.
[2019-08-11] MEDS: DOCUSATE SODIUM 100 MG/10 ML UDC PO SCH (10:55)
[2019-08-11] MEDS: INSULIN GLARGINE,HUM.REC.ANLOG 1,000 UNIT/10 ML VIAL SUBCUT SCH (10:56)
[2019-08-11] MEDS: FAMOTIDINE 20 MG TABLET PO SCH ×2 (10:57→22:38)
[2019-08-11] MEDS: ENOXAPARIN SODIUM INJ 40 MG/0.4 ML DISP.SYRIN SUBCUT SCH (10:57)
[2019-08-11] MEDS ORDERED: POTASSIUM CHLORIDE 10 MEQ TABLET.ER PO ONE (11:00)
[2019-08-11] MEDS: VANCOMYCIN HCL 1,250 MG in DEXTROSE 5%-WATER 250 ML IV SCH (16:50)
[2019-08-11 17:56] LABS: ABSOLUTE BASOPHILS # (AUTO) 0.1 10^3/uL (0.0-0.2); ABSOLUTE EOSINOPHILS # (AUTO) 0.2 10^3/uL (0.0-0.6); ABSOLUTE LYMPHOCYTES (AUTO) 1.3 10^3/uL (0.5-4.7); ABSOLUTE MONOCYTES (AUTO) 0.9 10^3/uL (0.1-1.4); ABSOLUTE NEUT (AUTO) 11.2 10^3/uL (1.7-8.2); BASOPHILS % (AUTO) 0.5 % (0-2); EOSINOPHILS % (AUTO) 1.3 % (0-6); HEMATOCRIT 32.1 % (37.9-51.0); HEMOGLOBIN 10.8 g/dL (13.5-17.0); LYMPHOCYTES % (AUTO) 9.7 % (13-45); MEAN CORPUSCULAR HGB CONC 33.5 g/dL (32.0-36.0); MEAN CORPUSCULAR VOLUME 87 fl (80-97); MONOCYTES % (AUTO) 6.5 % (3-13); PLATELET COUNT 248 10^3/uL (150-450); RED BLOOD COUNT 3.71 10^6/uL (4.35-5.55); RED CELL DISTRIBUTION WIDTH 12.9 % (11.5-14.0); TOTAL CELLS COUNTED % (AUTO) 100 %; WHITE BLOOD COUNT 13.7 10^3/uL (4.0-10.5)
[2019-08-11 18:08] LABS: ANION GAP 9 (5-19); BLOOD UREA NITROGEN 10 mg/dL (7-20); CARBON DIOXIDE 25 mmol/L (22-30); CHLORIDE 97 mmol/L (98-107); GLUCOSE 165 mg/dL (75-110); POTASSIUM 3.3 mmol/L (3.6-5.0)
[2019-08-11 18:19] LABS: CALCIUM 6.8 mg/dL (8.4-10.2)
--- NOTE | 2019-08-11 20:44 | EKG REPORT ---
SEVERITY:- BORDERLINE ECG - SINUS TACHYCARDIA BORDERLINE T WAVE ABNORMALITIES : Confirmed by: Darline Gama 11-Aug-2019 20:44:06
[2019-08-12] MEDS: PIPERACILLIN SODIUM/TAZOBACTAM 3.375 GM in NORMAL SALINE 100 ML IV SCH ×4 (03:06→20:40)
[2019-08-12] MEDS: VANCOMYCIN HCL 1,250 MG in DEXTROSE 5%-WATER 250 ML IV SCH ×3 (03:07→23:03)
[2019-08-12] MEDS ORDERED: CALCIUM GLUCONATE 1000 MG/10 ML INJ IV ONE (06:54)
[2019-08-12] MEDS: INSULIN LISPRO 100 UNIT/ML 3 ML VIAL SUBCUT SCH ×4 (08:10→22:57)
[2019-08-12] MEDS: HYDROMORPHONE HCL INJ/PF 2 MG/ML AMPULE IV PRN ×3 (08:55→23:17)
[2019-08-12] MEDS ORDERED: CALCIUM GLUCONATE 2,000 MG in DEXTROSE 5%-WATER 100 ML IV ONE (09:00)
--- NOTE | 2019-08-12 10:19 | PDOC PROGRESS REPORT ---
Subjective Progress Note for:: 08/12/19 Subjective:: NANCY VALADEZ is a 58 year old male past medical history of diabetes not on antidiabetic, presenting to ED complaining of right axillary and right chest tenderness and swelling. Patient is stating that about 9 days ago he felt a mass in his right armpit, initially he did some warm compresses which is not resolved the mass, he noticed it was getting bigger and more tender, 4 days ago he decided to squeeze it and he noticed pus coming out of the mass and after that he noticed that the swelling and tenderness got progressively worse and extended to his right upper extremity and right chest. He is also complaining of right axillary pain 5/5, constant, worse with movement, nonradiating associated with fever and chills at home and 2 episodes of nonbloody vomiting yesterday and one episode of nonbloody diarrhea. Today he is denying any nausea, vomiting, shortness of breath, chest pain, abdominal pain, diarrhea, constipation or any urinary symptoms. 08/11/2019. Patient this morning comfortably sitting in bed in no apparent distress, enjoying his breakfast. Denies any fever, chills, nausea, vomiting, diarrhea, constipation or any urinary symptoms. 08/12/2019. No acute events overnight. Patient comfortably sitting in bed no apparent distress. Reporting significant improvement of his right upper extremity pain and swelling however still not able to move upper extremity much due to swelling and pain. Tolerant, ambulatory, having normal bowel and bladder movements. Denies any fever, chills, nausea, vomiting, diarrhea, constipation or any urinary symptoms. Reason For Visit: SEPSIS, RIGHT AXILLARY ABSCESS, DIABETES Physical Exam Vital Signs: Temp Pulse Resp BP Pulse Ox 98.1 F 81 16 98/70 L 97 08/12/19 03:24 08/12/19 07:00 08/12/19 03:24 08/12/19 03:24 08/12/19 03:24 Intake & Output 08/11/19 08/12/19 08/13/19 06:59 06:59 06:59 Intake Total 6450 7980 Output Total 2300 1775 Balance 4150 6205 Weight 104.2 kg 104.3 kg General appearance: PRESENT: obese Eye exam: PRESENT: conjunctiva pink, EOMI, PERRLA. ABSENT: scleral icterus Respiratory exam: PRESENT: clear to auscultation belinda. ABSENT: rales, rhonchi, wheezes Cardiovascular exam: PRESENT: RRR. ABSENT: diastolic murmur, rubs, systolic murmur GI/Abdominal exam: PRESENT: normal bowel sounds, soft. ABSENT: distended, guarding, mass, organolmegaly, rebound, tenderness Extremities exam: PRESENT: full ROM, other - Right upper extremity erythema improving, persistent swelling, range of motion limited due to pain, right axillary and anterior chest wound looks clean. No sign of discharge.. ABSENT: calf tenderness, clubbing, pedal edema Results Laboratory Results: 08/11/19 17:35 08/11/19 17:35 08/11/19 08/11/19 17:35 17:35 WBC 13.7 H RBC 3.71 L Hgb 10.8 L Hct 32.1 L MCV 87 MCH 29.0 MCHC 33.5 RDW 12.9 Plt Count 248 Seg Neutrophils % 82.0 H Sodium 130.7 L Potassium 3.3 L Chloride 97 L Carbon Dioxide 25 Anion Gap 9 BUN 10 Creatinine 0.94 Est GFR ( Amer) > 60 Glucose 165 H Calcium 6.8 L* 08/10/19 17:26 Axilla - Right Side Abscess Gram Stain - Final 08/10/19 17:26 Axilla - Right Side Abscess Wound Culture - Final Staphylococcus Aureus No Anaerobic Organisms Impressions: Upper Extremity CT 08/10/19 12:35 IMPRESSION: Diffuse skin thickening and subcutaneous edema involving the right insula, medial right upper arm, and right lateral chest wall. No focal drainable abscess or underlying bone lesion. Assessment and Plan - Diagnosis (1) Abscess of right axilla Is this a current diagnosis for this admission?: Yes Plan: Extensive right axillary abscess. Day 2 status post extensive I&D. 08/10/2019 CT scan shows diffuse skin thickening and edema involving the right axilla medial right arm and right lateral chest wall. No abscess or underlying bone lesion. Day 3 IV antibiotics. Day 3 IV vancomycin. Day 3 IV Zosyn. Continue. IV antibiotics, follow-up wound and blood culture. Continue wound dressing. Surgery following. (2) Cellulitis Qualifiers: Site of cellulitis: extremity Site of cellulitis of extremity: upper extremity Laterality: right Qualified Code(s): L03.113 - Cellulitis of right upper limb Is this a current diagnosis for this admission?: Yes Plan: As per #1. (3) Sepsis Qualifiers: Sepsis type: sepsis due to unspecified organism Sepsis acute organ dysfun ction status: unspecified Qualified Code(s): A41.9 - Sepsis, unspecified organism Is this a current diagnosis for this admission?: Yes Plan: Resolved. Due to problem #1. Presented with leukocytosis with bandemia, elevated creatinine, elevated lactic acid, elevated total bilirubin and tachycardia. Continue empiric IV antibiotics, volume physician guided by volume status, monitor vitals. (4) Diabetes Qualifiers: Diabetes mellitus type: type 2 Is this a current diagnosis for this admission?: Yes Plan: Controlled. Hemoglobin A1c 6.7%. Presented with blood glucose level of 309. Used to take oral antidiabetic but was taken off by PCP. Continue diabetic diet, basal, prandial and correctional insulin, hypoglycemia protocol, Accu-Chek. We will discharge home on oral antidiabetics. Diabetic education. (5) RENÉE (acute kidney injury) Is this a current diagnosis for this admission?: Yes Plan: Resolved. Prerenal. Most likely due to underlying sepsis. Electrolytes WNL. Continue monitoring volume status and electrolytes and replace as needed. Avoid nephrotoxic meds. (6) Obesity (BMI 30.0-34.9) Is this a current diagnosis for this admission?: Yes Plan: BMI 34.0. Will check TSH. Diet and lifestyle modification recommended.
[2019-08-12] MEDS: INSULIN GLARGINE,HUM.REC.ANLOG 1,000 UNIT/10 ML VIAL SUBCUT SCH (10:27)
[2019-08-12] MEDS: DOCUSATE SODIUM 100 MG/10 ML UDC PO SCH (10:27)
[2019-08-12] MEDS: ENOXAPARIN SODIUM INJ 40 MG/0.4 ML DISP.SYRIN SUBCUT SCH (10:28)
[2019-08-12] MEDS: FAMOTIDINE 20 MG TABLET PO SCH ×2 (10:35→22:59)
[2019-08-12] MEDS ORDERED: DEXTROSE 50%-WATER 25 GM/50 ML DISP.SYRIN IV PRN ×2 (11:33)
[2019-08-12] MEDS ORDERED: DEXTROSE 40% GEL 15 GM TUBE PO PRN ×2 (11:33)
[2019-08-12] MEDS ORDERED: GLUCAGON,HUMAN RECOMB 1 MG INJ SUBCUT PRN (11:33)
--- NOTE | 2019-08-12 11:33 | PDOC PROGRESS REPORT ---
Subjective Progress Note for:: 08/12/19 Subjective:: Patient still having pain, no fever; feels about the same compared to yesterday. Reason For Visit: SEPSIS, RIGHT AXILLARY ABSCESS, DIABETES Physical Exam Vital Signs: Temp Pulse Resp BP Pulse Ox 98.1 F 81 16 98/70 L 97 08/12/19 03:24 08/12/19 07:00 08/12/19 03:24 08/12/19 03:24 08/12/19 03:24 Intake & Output 08/11/19 08/12/19 08/13/19 06:59 06:59 06:59 Intake Total 6450 7980 Output Total 2300 1775 Balance 4150 6205 Weight 104.2 kg 104.3 kg General appearance: PRESENT: mild distress Musculoskeletal exam: PRESENT: other - Dressings were removed. The wounds consist of to operative incisions, one on the chest, diagonally oriented, approximated with nonabsorbable suture in the middle. Second wound right upper extremity exposing the occipital groove. There is significant amount of bulla and edema of the doing skin of the upper arm extending to the elbow. I cannot express any pus. Posed muscle clean, well vascularized. Both wounds irrigated, and Curlex packing installed. Results Laboratory Results: 08/11/19 17:35 08/11/19 17:35 08/11/19 08/11/19 17:35 17:35 WBC 13.7 H RBC 3.71 L Hgb 10.8 L Hct 32.1 L MCV 87 MCH 29.0 MCHC 33.5 RDW 12.9 Plt Count 248 Seg Neutrophils % 82.0 H Sodium 130.7 L Potassium 3.3 L Chloride 97 L Carbon Dioxide 25 Anion Gap 9 BUN 10 Creatinine 0.94 Est GFR ( Amer) > 60 Glucose 165 H Calcium 6.8 L* 08/10/19 17:26 Axilla - Right Side Abscess Gram Stain - Final 08/10/19 17:26 Axilla - Right Side Abscess Wound Culture - Final Staphylococcus Aureus No Anaerobic Organisms Impressions: Upper Extremity CT 08/10/19 12:35 IMPRESSION: Diffuse skin thickening and subcutaneous edema involving the right insula, medial right upper arm, and right lateral chest wall. No focal drainable abscess or underlying bone lesion. Assessment & Plan - Diagnosis (1) Abscess of right axilla Is this a current diagnosis for this admission?: Yes Plan: Impression: Status post aggressive debridement of right chest wall right upper extremity for necrotizing fasciitis postoperative day 2, with stable open wound; concerned about persisting erythema and edema of the right arm. Recommendations: 1. Continue dressing changes, and intravenous antibiotics. Patient growing staph aureus, sensitive to most biotics including vancomycin 2. We will keep patient n.p.o. after midnight in anticipation of possible second look, additional debridement. This was discussed with the patient. - Time Time Spent with patient: 15-24 minutes Medications reviewed and adjusted accordingly: Yes Anticipated discharge: Home
[2019-08-12] MEDS: NORMAL SALINE 1000 ML 1,000 ML IV PRN (13:52)
[2019-08-12] MEDS ORDERED: ONDANSETRON HCL INJ/PF 4 MG/2 ML SDV IV PRN (15:30)
[2019-08-12 17:20] LABS: VANCOMYCIN,TROUGH 7.9 ug/mL (5.0-20.0)
[2019-08-12 19:12] LABS: HEMATOCRIT 32.6 % (37.9-51.0); MEAN CORPUSCULAR HEMOGLOBIN 29.2 pg (27.0-33.4); MEAN CORPUSCULAR HGB CONC 33.8 g/dL (32.0-36.0); MEAN CORPUSCULAR VOLUME 86 fl (80-97); PLATELET COUNT 310 10^3/uL (150-450); RED BLOOD COUNT 3.78 10^6/uL (4.35-5.55)
[2019-08-12 19:25] LABS: ANION GAP 8 (5-19); BLOOD UREA NITROGEN 9 mg/dL (7-20); CALCIUM 7.4 mg/dL (8.4-10.2); CARBON DIOXIDE 31 mmol/L (22-30); CHLORIDE 94 mmol/L (98-107); GLUCOSE 104 mg/dL (75-110)
[2019-08-12 19:28] LABS: ABSOLUTE MONOCYTES # (MANUAL) 0.8 10^3/uL (0.1-1.4); BAND NEUTROPHILS % (MANUAL) 7 % (3-5); BASOPHILS % (MANUAL) 0 % (0-2); EOSINOPHILS % (MANUAL) 2 % (0-6); HYPOCHROMASIA 1+; LYMPHOCYTES % (MANUAL) 13 % (13-45); MONOCYTES % (MANUAL) 5 % (3-13); SEGMENTED NEUTROPHILS % (MAN) 73 % (42-78); TOTAL CELLS COUNTED 100
[2019-08-12 19:29] LABS: PLATELET COMMENT ADEQUATE
[2019-08-12 19:35] LABS: POTASSIUM 2.9 mmol/L (3.6-5.0)
[2019-08-12] MEDS ORDERED: POTASSIUM CHLORIDE 10 MEQ TABLET.ER PO ONE (21:00)
[2019-08-13] MEDS: PIPERACILLIN SODIUM/TAZOBACTAM 3.375 GM in NORMAL SALINE 100 ML IV SCH ×4 (02:49→22:34)
[2019-08-13] MEDS: HYDROMORPHONE HCL INJ/PF 2 MG/ML AMPULE IV PRN (02:59)
[2019-08-13] MEDS: VANCOMYCIN HCL 1,250 MG in DEXTROSE 5%-WATER 250 ML IV SCH ×3 (05:38→23:35)
[2019-08-13] MEDS: POTASSIUM CHLORIDE 10 MEQ TABLET.ER PO SCH ×3 (09:36→17:50)
[2019-08-13] MEDS: INSULIN LISPRO 100 UNIT/ML 3 ML VIAL SUBCUT SCH ×4 (09:36→22:33)
--- NOTE | 2019-08-13 10:21 | PDOC PROGRESS REPORT ---
Subjective Progress Note for:: 08/13/19 Subjective:: NANCY VALADEZ is a 58 year old male past medical history of diabetes not on antidiabetic, presenting to ED complaining of right axillary and right chest tenderness and swelling. Patient is stating that about 9 days ago he felt a mass in his right armpit, initially he did some warm compresses which is not resolved the mass, he noticed it was getting bigger and more tender, 4 days ago he decided to squeeze it and he noticed pus coming out of the mass and after that he noticed that the swelling and tenderness got progressively worse and extended to his right upper extremity and right chest. He is also complaining of right axillary pain 5/5, constant, worse with movement, nonradiating associated with fever and chills at home and 2 episodes of nonbloody vomiting yesterday and one episode of nonbloody diarrhea. Today he is denying any nausea, vomiting, shortness of breath, chest pain, abdominal pain, diarrhea, constipation or any urinary symptoms. 08/11/2019. Patient this morning comfortably sitting in bed in no apparent distress, enjoying his breakfast. Denies any fever, chills, nausea, vomiting, diarrhea, constipation or any urinary symptoms. 08/12/2019. No acute events overnight. Patient comfortably sitting in bed no apparent distress. Reporting significant improvement of his right upper extremity pain and swelling however still not able to move upper extremity much due to swelling and pain. Tolerant, ambulatory, having normal bowel and bladder movements. Denies any fever, chills, nausea, vomiting, diarrhea, constipation or any urinary symptoms. 08/13/2019. No acute events overnight. Patient complaining of right upper extremity and right anterior chest pain otherwise denies any fever, chills, nausea, vomiting, diarrhea, constipation or any urinary symptoms. Patient is n.p.o. for another I&D of his right axilla and right anterior chest abscess/cellulitis. Reason For Visit: SEPSIS, RIGHT AXILLARY ABSCESS, DIABETES Physical Exam Vital Signs: Temp Pulse Resp BP Pulse Ox 97.7 F 73 18 114/73 98 08/13/19 07:42 08/13/19 07:42 08/13/19 07:42 08/13/19 07:42 08/13/19 07:42 Intake & Output 08/12/19 08/13/19 08/14/19 06:59 06:59 06:59 Intake Total 7980 2712 Output Total 1778 2600 Balance 6205 112 Weight 104.3 kg 97.1 kg General appearance: PRESENT: obese Head exam: PRESENT: atraumatic, normocephalic Respiratory exam: PRESENT: clear to auscultation belinda. ABSENT: rales, rhonchi, wheezes Cardiovascular exam: PRESENT: RRR. ABSENT: diastolic murmur, rubs, systolic murmur GI/Abdominal exam: PRESENT: normal bowel sounds, soft. ABSENT: distended, guarding, mass, organolmegaly, rebound, tenderness Extremities exam: PRESENT: other - Right upper extremity swelling below elbow, shoulder range of motion limited by pain, erythema improving. Right upper extremity neurovascularly intact. Neurological exam: PRESENT: alert, awake, oriented to person, oriented to place, oriented to time, oriented to situation, CN II-XII grossly intact. ABSENT: motor sensory deficit Results Laboratory Results: 08/12/19 18:50 08/12/19 18:50 08/12/19 08/12/19 08/12/19 10:59 10:59 18:50 WBC 15.0 H RBC 3.78 L Hgb 11.0 L Hct 32.6 L MCV 86 MCH 29.2 MCHC 33.8 RDW 13.0 Plt Count 310 Seg Neutrophils % Not Reportable Sodium Potassium Chloride Carbon Dioxide Anion Gap BUN Creatinine Est GFR ( Amer) Glucose Calcium TSH 2.50 PTH Intact 52.3 08/12/19 18:50 WBC RBC Hgb Hct MCV MCH MCHC RDW Plt Count Seg Neutrophils % Sodium 133.0 L Potassium 2.9 L* Chloride 94 L Carbon Dioxide 31 H Anion Gap 8 BUN 9 Creatinine 1.01 Est GFR ( Amer) > 60 Glucose 104 Calcium 7.4 L TSH PTH Intact 08/10/19 17:26 Axilla - Right Side Abscess Gram Stain - Final 08/10/19 17:26 Axilla - Right Side Abscess Wound Culture - Final Staphylococcus Aureus No Anaerobic Organisms Impressions: Upper Extremity CT 08/10/19 12:35 IMPRESSION: Diffuse skin thickening and subcutaneous edema involving the right insula, medial right upper arm, and right lateral chest wall. No focal drainable abscess or underlying bone lesion. Assessment and Plan - Diagnosis (1) Abscess of right axilla Is this a current diagnosis for this admission?: Yes Plan: Extensive right axillary abscess. Wound culture growing MSSA. Day 3 status post extensive I&D. Scheduled for another I&D today. 08/10/2019 CT scan shows diffuse skin thickening and edema involving the right axilla medial right arm and right lateral chest wall. No abscess or underlying bone lesion. Day 4 IV antibiotics. Day 4 IV vancomycin. Day 4 IV Zosyn. Continue IV antibiotics, follow-up wound and blood culture. Continue wound dressing. Surgery following. (2) Cellulitis Qualifiers: Site of cellulitis: extremity Site of cellulitis of extremity: upper extremity Laterality: right Qualified Code(s): L03.113 - Cellulitis of right upper limb Is this a current diagnosis for this admission?: Yes Plan: As per #1. (3) Sepsis Qualifiers: Sepsis type: sepsis due to unspecified organism Sepsis acute organ dysfunction status: unspecified Qualified Code(s): A41.9 - Sepsis, unspecified organism Is this a current diagnosis for this admission?: Yes Plan: Resolved. Due to problem #1. Presented with leukocytosis with bandemia, elevated creatinine, elevated lactic acid, elevated total bilirubin and tachycardia. Continue empiric IV antibiotics, volume physician guided by volume status, monitor vitals. (4) Diabetes Qualifiers: Diabetes mellitus type: type 2 Is this a current diagnosis for this admission?: Yes Plan: Controlled. Hemoglobin A1c 6.7%. Presented with blood glucose level of 309. Used to take oral antidiabetic but was taken off by PCP. Continue diabetic diet, basal, prandial and correctional insulin, hypoglycemia protocol, Accu-Chek. We will discharge home on oral antidiabetics. Diabetic education. (5) RENÉE (acute kidney injury) Is this a current diagnosis for this admission?: Yes Plan: Resolved. Prerenal. Most likely due to underlying sepsis. Electrolytes WNL. Continue monitoring volume status and electrolytes and replace as needed. Avoid nephrotoxic meds. (6) Obesity (BMI 30.0-34.9) Is this a current diagnosis for this admission?: Yes Plan: BMI 34.0. Will check TSH. Diet and lifestyle modification recommended.
--- NOTE | 2019-08-13 12:39 | PDOC PROGRESS REPORT ---
Subjective Progress Note for:: 08/13/19 Reason For Visit: SEPSIS, RIGHT AXILLARY ABSCESS, DIABETES Physical Exam Vital Signs: Temp Pulse Resp BP Pulse Ox 97.8 F 79 17 106/67 98 08/13/19 11:35 08/13/19 11:35 08/13/19 11:35 08/13/19 11:35 08/13/19 11:35 Intake & Output 08/12/19 08/13/19 08/14/19 06:59 06:59 06:59 Intake Total 7980 2712 Output Total 1775 2600 Balance 6205 112 Weight 104.3 kg 97.1 kg Results Laboratory Results: 08/12/19 18:50 08/12/19 18:50 08/12/19 08/12/19 18:50 18:50 WBC 15.0 H RBC 3.78 L Hgb 11.0 L Hct 32.6 L MCV 86 MCH 29.2 MCHC 33.8 RDW 13.0 Plt Count 310 Seg Neutrophils % Not Reportable Sodium 133.0 L Potassium 2.9 L* Chloride 94 L Carbon Dioxide 31 H Anion Gap 8 BUN 9 Creatinine 1.01 Est GFR ( Amer) > 60 Glucose 104 Calcium 7.4 L 08/10/19 17:26 Axilla - Right Side Abscess Gram Stain - Final 08/10/19 17:26 Axilla - Right Side Abscess Wound Culture - Final Staphylococcus Aureus No Anaerobic Organisms Impressions: Upper Extremity CT 08/10/19 12:35 IMPRESSION: Diffuse skin thickening and subcutaneous edema involving the right insula, medial right upper arm, and right lateral chest wall. No focal drainable abscess or underlying bone lesion. Assessment & Plan - Diagnosis (1) Necrotizing fasciitis Is this a current diagnosis for this admission?: Yes (2) Abscess of right axilla Is this a current diagnosis for this admission?: Yes - Time Time Spent with patient: Less than 15 minutes - Plan Summary Plan Summary: This is a 58-year-old male with a severe right upper extremity and right chest infection, consistent with necrotizing fasciitis. Proximally, the wound appears to be doing well however, there is still significant swelling and bulla formation distally. I am suspicious that there may be an uncontrolled area of infection distally. I have recommended washout with exploration in the operating room today. The patient and his family have agreed to this. Risks/benefits discussed, informed consent obtained, and all questions answered.
[2019-08-13] MEDS ORDERED: BUPIVACAINE HCL 0.25 % INJ/PF (2.5 MG/1 ML) 30 ML VIAL ONE (14:38)
[2019-08-13] MEDS ORDERED: LIDOCAINE 1% INJ-PF (10 MG/ML) 30 ML SDV ONE (14:38)
[2019-08-13] MEDS ORDERED: PROPOFOL INJ 200 MG/20 ML VIAL IV ONE ×2 (14:42→16:03)
[2019-08-13] MEDS ORDERED: FENTANYL CITRATE INJ/PF 100 MCG/2 ML AMPUL ONE (14:42)
[2019-08-13] MEDS ORDERED: MIDAZOLAM 2 MG/2 ML INJ ONE (14:42)
[2019-08-13] MEDS ORDERED: MEPERIDINE HCL/PF INJ 25 MG/1 ML DISP.SYRIN IV PRN (15:30)
[2019-08-13] MEDS ORDERED: DIPHENHYDRAMINE HCL 50 MG/ML VIAL IV PRN (15:30)
[2019-08-13] MEDS ORDERED: FENTANYL CITRATE INJ/PF 100 MCG/2 ML AMPUL IV PRN ×3 (15:30)
[2019-08-13] MEDS ORDERED: PROMETHAZINE HCL INJ 25 MG/1 ML VIAL IV PRN (15:30)
--- NOTE | 2019-08-13 16:04 | Operative Report ---
Nonrecallable Operative Report DATE OF SURGERY: 08/13/19 PREOPERATIVE DIAGNOSIS: Severe infection of the right upper extremity and trunk (necrotizing fasciitis). POSTOPERATIVE DIAGNOSIS: Same as above OPERATION: 1. Incision and drainage of right upper extremity abscess. 2. Washout of right upper extremity with drain placement. SURGEON: SARAH MORALES ANESTHESIA: LMAC TISSUE REMOVED OR ALTERED: None COMPLICATIONS: Persistent infection/purulence of the right upper extremity and chest wall. ESTIMATED BLOOD LOSS: 20 cc PROCEDURE: Drains/implants: Lambert drain x3. Procedure in detail: After informed consent was obtained, the patient was brought to the operating room and laid in the supine position. The area of the right upper extremity and right chest were prepped and draped in a normal sterile fashion. Digital exploration was undertaken. The patient had an incision over the biceps on the right upper extremity. This incision tunneled deep, into the right chest wall. There was some reaccumulation of purulent material in the inferomedial right upper extremity, extending onto the chest wall. This was irrigated copiously. A counterincision was made on the infero-medial upper extremity, to ensure drainage of this purulent fluid collection. Apenrose drain was placed through the incision and tied to itself. Next, the forearm was inspected. There was another pocket of purulent material found distal to the large initial incision. A counterincision was then made distally, and another Anderson drain was placed through the counterincision (connecting it with the larger more medial incision). A third Lambert drain was then used to connect the large initial biceps incision to the large right chest wall incision. Next, the wounds were vigorously scrubbed with Betadine scrub brushes. After all purulent material was removed, the wound was packed with a Kerlix gauze, and a dressing was completed. The patient was then taken to PACU. All sponge, instrument, and needle counts were correct x2. Condition: Fair.
[2019-08-13] MEDS ORDERED: NORMAL SALINE 1000 ML 1,000 ML IV PRN (16:15)
[2019-08-13] MEDS: DOCUSATE SODIUM 100 MG/10 ML UDC PO SCH (17:14)
[2019-08-13] MEDS: INSULIN GLARGINE,HUM.REC.ANLOG 1,000 UNIT/10 ML VIAL SUBCUT SCH (17:15)
[2019-08-13] MEDS: ENOXAPARIN SODIUM INJ 40 MG/0.4 ML DISP.SYRIN SUBCUT SCH (17:15)
[2019-08-13] MEDS: FAMOTIDINE 20 MG TABLET PO SCH ×2 (17:16→22:35)
--- NOTE | 2019-08-13 19:10 | Progress Note ---
Provider Note Provider Note: ID Telephone Consultation Note Asked to review patient's chart by Pharmacy. Pt not seen or examined. Per chart review, Mr. Noreen Ingram is a [id number] man with obesity and h/o DM who presented on 08/10/19 to the ED with c/o progressively worsening axillary abscess in the past week with redness developing to R chest and medial right arm. Empirically, pt vancomycin and Zosyn were initiated. Pt was taken to the OR on 08/10/19 for I&D of R chest wall necrotizing fasciitis with removal of purulent material and fatty tissue from right chest wall as well as some necrotic muscle from R chest wall. Operative culture grew 4+ MSSA, no anaerobes. Pt returned to the OR on 08/13/19 for repeat I&D, washout and drain placement with evacuation of reaccumulated purulent material. Blood cultures are negative to date. Impression necrotizing soft tissue infection due to methicillin-susceptible Staphylococcus aureus involving R chest wall and RUE, s/p I&D x 2 and drain placement - S. aureus alone causes a large percentage of skin abscesses, and necrotizing fasciitis can also be monomicrobial with Staph aureus again among well recognized causes. - Empirically broad spectrum antibiotics are appropriate for necrotizing fasciitis, but, at this point, culture data is available to direct antimicrobial therapy. - MSSA alone was isolated from the initial debridement on 08/10/19 Recommendations - Recommend discontinuing Zosyn and vancomycin. Vancomycin is less effective than beta-lactams for MSSA. Combination of van comycin and Zosyn may have some increased nephrotoxicity potential and, with no other organisms besides MSSA identified, the risk is less justifiable, as is the selection pressure on other thomas and other untoward effects. - Would start Ancef 2 g IV q 8h. Continue Ancef until pt is clearly improving. Can transition to PO Duricef or Keflex at discharge if needed. Marlo Edwards MD [facility] pager [phone]
[2019-08-13] MEDS: OXYCODONE-ACETAMINOPHEN 5-325 MG TABLET PO PRN (23:06)
[2019-08-14] MEDS: PIPERACILLIN SODIUM/TAZOBACTAM 3.375 GM in NORMAL SALINE 100 ML IV SCH (03:01)
[2019-08-14 06:06] LABS: MEAN CORPUSCULAR HEMOGLOBIN 29.2 pg (27.0-33.4); MEAN CORPUSCULAR HGB CONC 33.5 g/dL (32.0-36.0); MEAN CORPUSCULAR VOLUME 87 fl (80-97); PLATELET COUNT 461 10^3/uL (150-450); RED BLOOD COUNT 3.78 10^6/uL (4.35-5.55); WHITE BLOOD COUNT 14.8 10^3/uL (4.0-10.5)
[2019-08-14] MEDS: VANCOMYCIN HCL 1,250 MG in DEXTROSE 5%-WATER 250 ML IV SCH (06:08)
[2019-08-14 06:20] LABS: ANION GAP 8 (5-19); BLOOD UREA NITROGEN 10 mg/dL (7-20); CALCIUM 7.4 mg/dL (8.4-10.2); CARBON DIOXIDE 31 mmol/L (22-30); CHLORIDE 99 mmol/L (98-107); GLUCOSE 112 mg/dL (75-110); POTASSIUM 3.5 mmol/L (3.6-5.0)
[2019-08-14 06:23] LABS: VANCOMYCIN,TROUGH 20.4 ug/mL (5.0-20.0)
[2019-08-14 07:09] LABS: ABSOLUTE LYMPHOCYTES# (MANUAL) 3.7 10^3/uL (0.5-4.7); ABSOLUTE MONOCYTES # (MANUAL) 0.9 10^3/uL (0.1-1.4); BAND NEUTROPHILS % (MANUAL) 1 % (3-5); BASOPHILS % (MANUAL) 0 % (0-2); EOSINOPHILS % (MANUAL) 0 % (0-6); LYMPHOCYTES % (MANUAL) 25 % (13-45); MONOCYTES % (MANUAL) 6 % (3-13); SEGMENTED NEUTROPHILS % (MAN) 68 % (42-78); TOTAL CELLS COUNTED 100
[2019-08-14 07:10] LABS: OVALOCYTES SLIGHT; PLATELET CLUMPS PRESENT; PLATELET COMMENT INCREASED; POLYCHROMASIA SLIGHT; TOXIC GRANULATION 1+; TOXIC VACUOLATION PRESENT
[2019-08-14] MEDS: INSULIN LISPRO 100 UNIT/ML 3 ML VIAL SUBCUT SCH ×4 (08:59→22:12)
[2019-08-14] MEDS: POTASSIUM CHLORIDE 10 MEQ TABLET.ER PO SCH ×3 (09:09→18:05)
[2019-08-14] MEDS: DOCUSATE SODIUM 100 MG/10 ML UDC PO SCH (09:09)
[2019-08-14] MEDS: ENOXAPARIN SODIUM INJ 40 MG/0.4 ML DISP.SYRIN SUBCUT SCH (09:12)
[2019-08-14] MEDS: FAMOTIDINE 20 MG TABLET PO SCH ×2 (09:18→22:19)
--- NOTE | 2019-08-14 09:18 | PDOC PROGRESS REPORT ---
Subjective Progress Note for:: 08/14/19 Subjective:: NANCY VALADEZ is a 58 year old male past medical history of diabetes not on antidiabetic, presenting to ED complaining of right axillary and right chest tenderness and swelling. Patient is stating that about 9 days ago he felt a mass in his right armpit, initially he did some warm compresses which is not resolved the mass, he noticed it was getting bigger and more tender, 4 days ago he decided to squeeze it and he noticed pus coming out of the mass and after that he noticed that the swelling and tenderness got progressively worse and extended to his right upper extremity and right chest. He is also complaining of right axillary pain 5/5, constant, worse with movement, nonradiating associated with fever and chills at home and 2 episodes of nonbloody vomiting yesterday and one episode of nonbloody diarrhea. Today he is denying any nausea, vomiting, shortness of breath, chest pain, abdominal pain, diarrhea, constipation or any urinary symptoms. 08/11/2019. Patient this morning comfortably sitting in bed in no apparent distress, enjoying his breakfast. Denies any fever, chills, nausea, vomiting, diarrhea, constipation or any urinary symptoms. 08/12/2019. No acute events overnight. Patient comfortably sitting in bed no apparent distress. Reporting significant improvement of his right upper extremity pain and swelling however still not able to move upper extremity much due to swelling and pain. Tolerant, ambulatory, having normal bowel and bladder movements. Denies any fever, chills, nausea, vomiting, diarrhea, constipation or any urinary symptoms. 08/13/2019. No acute events overnight. Patient complaining of right upper extremity and right anterior chest pain otherwise denies any fever, chills, nausea, vomiting, diarrhea, constipation or any urinary symptoms. Patient is n.p.o. for another I&D of his right axilla and right anterior chest abscess/cellulitis. 08/14/2019. No acute events overnight. Still complaining of right upper extremity pain and swelling. Has any fever, chills, nausea, vomiting, diarrhea, constipation or any urinary symptoms. P.o. tolerant. Having normal bowel bladder movement. Reason For Visit: SEPSIS, RIGHT AXILLARY ABSCESS, DIABETES Physical Exam Vital Signs: Temp Pulse Resp BP Pulse Ox 98.8 F 78 18 95/62 L 93 08/14/19 07:04 08/14/19 07:04 08/14/19 07:04 08/14/19 07:04 08/14/19 07:04 Intake & Output 08/13/19 08/14/19 08/15/19 06:59 06:59 06:59 Intake Total 2712 2910 Output Total 2600 626 Balance 112 2284 Weight 97.1 kg 105.6 kg General appearance: PRESENT: obese Head exam: PRESENT: atraumatic, normocephalic Respiratory exam: PRESENT: clear to auscultation belinda. ABSENT: rales, rhonchi, wheezes Cardiovascular exam: PRESENT: RRR. ABSENT: diastolic murmur, rubs, systolic murmur GI/Abdominal exam: PRESENT: normal bowel sounds, soft. ABSENT: distended, guarding, mass, organolmegaly, rebound, tenderness Neurological exam: PRESENT: alert, awake, oriented to person, oriented to place, oriented to time, oriented to situation, CN II-XII grossly intact. ABSENT: motor sensory deficit Results Laboratory Results: 08/14/19 05:46 08/14/19 05:46 08/14/19 08/14/19 08/14/19 05:46 05:46 05:46 WBC 14.8 H RBC 3.78 L Hgb 11.0 L Hct 33.0 L MCV 87 MCH 29.2 MCHC 33.5 RDW 13.0 Plt Count 461 H Seg Neutrophils % Not Reportable Sodium 137.9 Potassium 3.5 L Chloride 99 Carbon Dioxide 31 H Anion Gap 8 BUN 10 Creatinine 1.16 Est GFR ( Amer) > 60 Glucose 112 H Calcium 7.4 L Magnesium 2.4 H Impressions: Upper Extremity CT 08/10/19 12:35 IMPRESSION: Diffuse skin thickening and subcutaneous edema involving the right insula, medial right upper arm, and right lateral chest wall. No focal drainable abscess or underlying bone lesion. Assessment and Plan - Diagnosis (1) Abscess of right axilla Is this a current diagnosis for this admission?: Yes Plan: Extensive right axillary, right anterior chest, right proximal upper extremity abscess. Status post 2 I&D since admission. Initial blood culture growing MSSA. 08/10/2019 CT scan shows diffuse skin thickening and edema involving the right axilla medial right arm and right lateral chest wall. No abscess or underlying bone lesion. Day 5 IV antibiotics. Day 1 IV cefazolin. Received 4 days of IV vancomycin. Received 4 days of IV Zosyn. Infectious disease on board. Recommendation is to switch to IV cefazolin and switch to p.o. Keflex upon discharge. Continue IV antibiotics, follow-up wound and blood culture. Continue wound dressing. Surgery following. (2) Cellulitis Qualifiers: Site of cellulitis: extremity Site of cellulitis of extremity: upper extre mity Laterality: right Qualified Code(s): L03.113 - Cellulitis of right upper limb Is this a current diagnosis for this admission?: Yes Plan: As per #1. (3) Sepsis Qualifiers: Sepsis type: sepsis due to unspecified organism Sepsis acute organ dysfunction status: unspecified Qualified Code(s): A41.9 - Sepsis, unspecified organism Is this a current diagnosis for this admission?: Yes Plan: Resolved. Due to problem #1. Presented with leukocytosis with bandemia, elevated creatinine, elevated lactic acid, elevated total bilirubin and tachycardia. (4) Diabetes Qualifiers: Diabetes mellitus type: type 2 Is this a current diagnosis for this admission?: Yes Plan: Controlled. Hemoglobin A1c 6.7%. Presented with blood glucose level of 309. Used to take oral antidiabetic but was taken off by PCP. Continue diabetic diet, basal, prandial and correctional insulin, hypoglycemia protocol, Accu-Chek. We will discharge home on oral antidiabetics. Diabetic education. (5) RENÉE (acute kidney injury) Is this a current diagnosis for this admission?: Yes Plan: Resolved. Prerenal. Most likely due to underlying sepsis. Electrolytes WNL. Continue monitoring volume status and electrolytes and replace as needed. Avoid nephrotoxic meds. (6) Obesity (BMI 30.0-34.9) Is this a current diagnosis for this admission?: Yes Plan: BMI 34.0. TSH WNL. Diet and lifestyle modification recommended.
[2019-08-14] MEDS: HYDROMORPHONE HCL INJ/PF 2 MG/ML AMPULE IV PRN (09:56)
--- NOTE | 2019-08-14 10:34 | PDOC PROGRESS REPORT ---
Subjective Progress Note for:: 08/14/19 Subjective:: Patient comfortable Reason For Visit: SEPSIS, RIGHT AXILLARY ABSCESS, DIABETES Physical Exam Vital Signs: Temp Pulse Resp BP Pulse Ox 98.8 F 78 18 95/62 L 93 08/14/19 07:04 08/14/19 07:04 08/14/19 07:04 08/14/19 07:04 08/14/19 07:04 Intake & Output 08/13/19 08/14/19 08/15/19 06:59 06:59 06:59 Intake Total 2712 2910 Output Total 2600 626 Balance 112 2284 Weight 97.1 kg 105.6 kg General appearance: PRESENT: no acute distress Skin exam: PRESENT: other - Right chest, right arm, right forearm = surgical wounds clean, granulating, no odor, minimal edema, minimally tender on pa lpation, erythema noted in the volar aspect of the right forearm Results Laboratory Results: 08/14/19 05:46 08/14/19 05:46 08/14/19 08/14/19 08/14/19 05:46 05:46 05:46 WBC 14.8 H RBC 3.78 L Hgb 11.0 L Hct 33.0 L MCV 87 MCH 29.2 MCHC 33.5 RDW 13.0 Plt Count 461 H Seg Neutrophils % Not Reportable Sodium 137.9 Potassium 3.5 L Chloride 99 Carbon Dioxide 31 H Anion Gap 8 BUN 10 Creatinine 1.16 Est GFR ( Amer) > 60 Glucose 112 H Calcium 7.4 L Magnesium 2.4 H Impressions: Upper Extremity CT 08/10/19 12:35 IMPRESSION: Diffuse skin thickening and subcutaneous edema involving the right insula, medial right upper arm, and right lateral chest wall. No focal drainable abscess or underlying bone lesion. Assessment & Plan - Diagnosis (1) Necrotizing fasciitis Is this a current diagnosis for this admission?: Yes - Time Time Spent with patient: 35 or more minutes - Plan Summary Plan Summary: Assessment: Postop day #4 and 1 after extensive debridement of right chest, arm, and forearm necrotizing fasciitis Surgical cultures significant only for MSSA Antibiotic changed to Ancef IV piggyback Surgical wounds are granulating and clean; however, there is redness with cutaneous changes in the right forearm volar aspect Plan: Tylenol 650 mg p.o. every 6 Celebrex 1 tab p.o. twice a day Use narcotics only during dressing changes and limited to oral narcotics Active and passive range of motion right upper extremity Right upper extremity to be elevated above heart level all day N.p.o. after midnight for possible right forearm surgical debridement tomorrow
[2019-08-14] MEDS ORDERED: HYDROMORPHONE HCL INJ/PF 2 MG/ML AMPULE IV PRN ×2 (10:36→10:56)
[2019-08-14] MEDS ORDERED: ACETAMINOPHEN 325 MG TABLET PO SCH (10:45)
[2019-08-14] MEDS: INSULIN GLARGINE,HUM.REC.ANLOG 1,000 UNIT/10 ML VIAL SUBCUT SCH (12:16)
[2019-08-14] MEDS: CELECOXIB 200 MG CAPSULE PO SCH ×2 (12:25→18:05)
[2019-08-14] MEDS: CEFAZOLIN SODIUM 2 GM in DEXTROSE 5%-WATER 100 ML IV SCH ×2 (15:13→22:20)
[2019-08-14] MEDS ORDERED: ACETAMINOPHEN 325 MG TABLET PO PRN (15:30)
--- NOTE | 2019-08-14 16:21 | RADIOLOGY REPORT (SQ) ---
EXAM DESCRIPTION: PICC INSERTION; U/S GUIDE FOR VASCULAR ACCESS; FLUORO/CV PLACEMENT COMPLETED DATE/TIME: 08/14/2019 3:03 pm REASON FOR STUDY: IV AB; IV ABX COMPARISON: None. FLUOROSCOPY TIME: 37 seconds 1 images submitted to PACS. TECHNIQUE: Integrated into the Procedure. LIMITATIONS: None. PROCEDURE: The procedure, risks, benefits, and alternatives were discussed with the patient in the p reprocedural area, and all questions were answered. Informed consent was obtained verbally and in wri ting. The patient was then brought to the procedural suite, positioned supine on the fluoroscopy table, and a time-out was performed. At first the left upper extremity was evaluated with ultrasound and the brachial vein was found to be patent and compressible. The left upper extremity was then prepped and draped with 2% chlorhexidine utilizing standard sterile technique. After the skin over the brachial vein was anesthetized with 1% lidocaine, ultrasound guidance was used to access the vessel with a 21-gauge needle - a sonographic i mage was stored for documentation. A 0.018 inch guidewire was then inserted through the needle and ad vanced under fluoroscopic guidance into the SVC. After that, the needle was exchanged over the guidew keisha for a peel-away sheath. A 5 [place]guillan double -lumen PICC was then cut to the appropriate length of 4 1 cm, inserted through the sheath and advanced under fluoroscopic guidance into the SVC. After that, the peel-away sheath was removed and a fluoroscopic image of the chest was obtained to confirm proper position of the catheter tip within SVC. The lumens of the PICC were then aspirated, flushed with sterile saline and heparinized. At the end of the procedure the PICC was secured in place and a sterile dressing applied over it. The patient tolerated the procedure well without immediate complication. At the end of the procedure the patient's condition was unchanged from the preprocedural baseline. No IV conscious sedation was administered. Physiologic monitoring was provided before, during, and after the procedure. Documentation of [id number] time performing proceduralist spent monitoring the patient: 15 minutes. IMPRESSION: Successful placement of a 5 [place] double lumen PICC via the left brachial vein utilizin g fluoroscopic and sonographic guidance. COMMENT: Patient medication list reviewed: Yes- Quality ID# 130:Eligible professional attests to doc umenting in the medical record they obtained, updated, or reviewed the patient's current medications. . Quality ID 145: Final reports for procedures using fluoroscopy that document radiation exposure sara cortney, or exposure time and number of fluorographic images (if radiation exposure indices are not avail able) Quality ID #76: The patient was prepped and draped using maximum sterile barrier technique including cap, mask, sterile gown, sterile gloves, a large sterile sheet, hand hygiene, and 2% Chlorhexidine fo r cutaneous antisepsis. When ultrasound is used, sterile ultrasound techniques are followed requiring sterile gel and sterile probes. TECHNICAL DOCUMENTATION: JOB ID: [id number] [employer]- All Rights Reserved rev-12/15 Reading location - IP/workstation name: [email or web address] [id number]
[2019-08-14 18:22] LABS: HEMATOCRIT 28.9 % (37.9-51.0); HEMOGLOBIN 9.7 g/dL (13.5-17.0); MEAN CORPUSCULAR HEMOGLOBIN 29.2 pg (27.0-33.4); MEAN CORPUSCULAR HGB CONC 33.6 g/dL (32.0-36.0); MEAN CORPUSCULAR VOLUME 87 fl (80-97); PLATELET COUNT 511 10^3/uL (150-450); RED BLOOD COUNT 3.33 10^6/uL (4.35-5.55); RED CELL DISTRIBUTION WIDTH 13.3 % (11.5-14.0); WHITE BLOOD COUNT 13.5 10^3/uL (4.0-10.5)
[2019-08-14 18:45] LABS: ANION GAP 8 (5-19); BLOOD UREA NITROGEN 10 mg/dL (7-20); CALCIUM 7.2 mg/dL (8.4-10.2); CARBON DIOXIDE 29 mmol/L (22-30); CHLORIDE 99 mmol/L (98-107); GLUCOSE 137 mg/dL (75-110); POTASSIUM 3.3 mmol/L (3.6-5.0)
[2019-08-14 18:51] LABS: ABSOLUTE LYMPHOCYTES# (MANUAL) 1.6 10^3/uL (0.5-4.7); ABSOLUTE MONOCYTES # (MANUAL) 0.9 10^3/uL (0.1-1.4); BAND NEUTROPHILS % (MANUAL) 1 % (3-5); BASOPHILS % (MANUAL) 0 % (0-2); EOSINOPHILS % (MANUAL) 2 % (0-6); HYPOCHROMASIA SLIGHT; LYMPHOCYTES % (MANUAL) 12 % (13-45); MONOCYTES % (MANUAL) 7 % (3-13); NUCLEATED RED BLOOD CELLS 1 /100 WBC (0); SEGMENTED NEUTROPHILS % (MAN) 78 % (42-78); TOTAL CELLS COUNTED 100
[2019-08-14 18:52] LABS: PLATELET COMMENT INCREASED
[2019-08-14] MEDS ORDERED: NORMAL SALINE 10 ML SDV (AFTER EACH USE) IV PRN (20:00)
[2019-08-14] MEDS: NORMAL SALINE 10 ML SDV (SCHEDULED) IV SCH (22:20)
[2019-08-15] MEDS: CEFAZOLIN SODIUM 2 GM in DEXTROSE 5%-WATER 100 ML IV SCH ×3 (05:17→21:13)
[2019-08-15] MEDS: HYDROMORPHONE HCL INJ/PF 2 MG/ML AMPULE IV PRN (08:32)
[2019-08-15 08:35] LABS: HEMATOCRIT 25.9 % (37.9-51.0); HEMOGLOBIN 8.6 g/dL (13.5-17.0); MEAN CORPUSCULAR HEMOGLOBIN 29.2 pg (27.0-33.4); MEAN CORPUSCULAR HGB CONC 33.2 g/dL (32.0-36.0); MEAN CORPUSCULAR VOLUME 88 fl (80-97); PLATELET COUNT 509 10^3/uL (150-450); RED BLOOD COUNT 2.95 10^6/uL (4.35-5.55); RED CELL DISTRIBUTION WIDTH 13.2 % (11.5-14.0); WHITE BLOOD COUNT 11.7 10^3/uL (4.0-10.5)
[2019-08-15 08:48] LABS: BLOOD UREA NITROGEN 9 mg/dL (7-20); CARBON DIOXIDE 30 mmol/L (22-30); CHLORIDE 104 mmol/L (98-107); GLUCOSE 112 mg/dL (75-110); POTASSIUM 3.6 mmol/L (3.6-5.0)
[2019-08-15 09:14] LABS: CALCIUM 6.9 mg/dL (8.4-10.2)
[2019-08-15 09:15] LABS: ANION GAP 4 (5-19)
--- NOTE | 2019-08-15 09:36 | PDOC PROGRESS REPORT ---
Subjective Progress Note for:: 08/15/19 Subjective:: NANCY VALADEZ is a 58 year old male past medical history of diabetes not on antidiabetic, presenting to ED complaining of right axillary and right chest tenderness and swelling. Patient is stating that about 9 days ago he felt a mass in his right armpit, initially he did some warm compresses which is not resolved the mass, he noticed it was getting bigger and more tender, 4 days ago he decided to squeeze it and he noticed pus coming out of the mass and after that he noticed that the swelling and tenderness got progressively worse and extended to his right upper extremity and right chest. He is also complaining of right axillary pain 5/5, constant, worse with movement, nonradiating associated with fever and chills at home and 2 episodes of nonbloody vomiting yesterday and one episode of nonbloody diarrhea. Today he is denying any nausea, vomiting, shortness of breath, chest pain, abdominal pain, diarrhea, constipation or any urinary symptoms. 08/11/2019. Patient this morning comfortably sitting in bed in no apparent distress, enjoying his breakfast. Denies any fever, chills, nausea, vomiting, diarrhea, constipation or any urinary symptoms. 08/12/2019. No acute events overnight. Patient comfortably sitting in bed no apparent distress. Reporting significant improvement of his right upper extremity pain and swelling however still not able to move upper extremity much due to swelling and pain. Tolerant, ambulatory, having normal bowel and bladder movements. Denies any fever, chills, nausea, vomiting, diarrhea, constipation or any urinary symptoms. 08/13/2019. No acute events overnight. Patient complaining of right upper extremity and right anterior chest pain otherwise denies any fever, chills, nausea, vomiting, diarrhea, constipation or any urinary symptoms. Patient is n.p.o. for another I&D of his right axilla and right anterior chest abscess/cellulitis. 08/14/2019. No acute events overnight. Still complaining of right upper extremity pain and swelling. Has any fever, chills, nausea, vomiting, diarrhea, constipation or any urinary symptoms. P.o. tolerant. Having normal bowel bladder movement. 08/15/2019. No acute events overnight. Patient is again stable for another I&D by surgery. Right upper extremity swelling and pain improving, range of motion improving, denies any fever, chills, nausea, vomiting, diarrhea, constipation or any urinary symptoms. P.o. tolerant. Ambulatory. Having normal bowel and b ladder movements. Reason For Visit: SEPSIS, RIGHT AXILLARY ABSCESS, DIABETES Physical Exam Vital Signs: Temp Pulse Resp BP Pulse Ox 98.0 F 79 16 127/59 H 92 08/15/19 03:37 08/15/19 07:00 08/15/19 03:37 08/15/19 03:37 08/15/19 03:37 Intake & Output 08/14/19 08/15/19 08/16/19 06:59 06:59 06:59 Intake Total 2910 2630 Output Total 626 500 Balance 2284 2130 Weight 105.6 kg 107.9 kg General appearance: PRESENT: obese Head exam: PRESENT: atraumatic, normocephalic Respiratory exam: PRESENT: clear to auscultation belinda. ABSENT: rales, rhonchi, wheezes Cardiovascular exam: PRESENT: RRR. ABSENT: diastolic murmur, rubs, systolic murmur GI/Abdominal exam: PRESENT: normal bowel sounds, soft. ABSENT: distended, guarding, mass, organolmegaly, rebound, tenderness Extremities exam: PRESENT: other - Right upper extremity is still swollen much improved since yesterday, range of motion improving, dressing in place, erythema has resolved. Right upper extremity neurovascularly intact. Neurological exam: PRESENT: alert, awake, oriented to person, oriented to place, oriented to time, oriented to situation, CN II-XII grossly intact. ABSENT: motor sensory deficit Results Laboratory Results: 08/15/19 05:20 08/14/19 08/14/19 08/15/19 18:03 18:03 05:20 WBC 13.5 H RBC 3.33 L Hgb 9.7 L Hct 28.9 L MCV 87 MCH 29.2 MCHC 33.6 RDW 13.3 Plt Count 511 H Seg Neutrophils % Not Reportable Sodium 136.1 L 138.4 Potassium 3.3 L 3.6 Chloride 99 104 Carbon Dioxide 29 30 Anion Gap 8 4 L BUN 10 9 Creatinine 1.14 1.18 Est GFR ( Amer) > 60 > 60 Glucose 137 H 112 H Calcium 7.2 L 6.9 L* Impressions: Upper Extremity CT 08/10/19 12:35 IMPRESSION: Diffuse skin thickening and subcutaneous edema involving the right insula, medial right upper arm, and right lateral chest wall. No focal drainable abscess or underlying bone lesion. Guidance Fluoroscopy 08/14/19 00:00 IMPRESSION: Successful placement of a 5 Cambodian double lumen PICC via the left brachial vein utilizing fluoroscopic and sonographic guidance. Interventional Vascular Procedure 08/14/19 00:00 IMPRESSION: Successful placement of a 5 Cambodian double lumen PICC via the left brachial vein utilizing fluoroscopic and sonographic guidance. PICC Line Insertion 08/14/19 00:00 IMPRESSION: Successful placement of a 5 [place]odian double lumen PICC via the left brachial vein utilizing fluoroscopic and sonographic guidance. Assessment and Plan - Diagnosis (1) Abscess of right axilla Is this a current diagnosis for this admission?: Yes Plan: Extensive right axillary, right anterior chest, right proximal upper extremity abscess and necrotizing fasciitis. Status post 3 I&D since admission. Initial wound culture growing MSSA. 08/10/2019 CT scan shows diffuse skin thickening and edema involving the right axilla medial right arm and right lateral chest wall. No abscess or underlying bone lesion. Day 6 IV antibiotics. Day 2 IV cefazolin. Received 4 days of IV vancomycin. Received 4 days of IV Zosyn. Infectious disease on board. Recommendation is to switch to IV cefazolin and switch to p.o. Keflex upon discharge. Continue IV antibiotics, follow-up wound and blood culture. Continue wound dressing. Surgery following. (2) Cellulitis Qualifiers: Site of cellulitis: extremity Site of cellulitis of extremity: upper extremity Laterality: right Qualified Code(s): L03.113 - Cellulitis of right upper limb Is this a current diagnosis for this admission?: Yes Plan: As per #1. (3) Sepsis Qualifiers: Sepsis type: sepsis due to unspecified organism Sepsis acute organ dysfunction status: unspecified Qualified Code(s): A41.9 - Sepsis, unspecified organism Is this a current diagnosis for this admission?: Yes Plan: Resolved. Vitals WNL. Due to problem #1. Presented with leukocytosis with bandemia, elevated creatinine, elevated lactic acid, elevated total bilirubin and tachycardia. (4) Diabetes Qualifiers: Diabetes mellitus type: type 2 Is this a current diagnosis for this admission?: Yes Plan: Controlled. Hemoglobin A1c 6.7%. Presented with blood glucose level of 309. Used to take oral antidiabetic but was taken off by PCP. Continue diabetic diet, basal, prandial and correctional insulin, hypoglycemia protocol, Accu-Chek. We will discharge home on oral antidiabetics. Diabetic education. (5) RENÉE (acute kidney injury) Is this a current diagnosis for this admission?: Yes Plan: Resolved. Prerenal. Most likely due to underlying sepsis. Electrolytes WNL. Continue monitoring volume status and electrolytes and replace as needed. Avoid nephrotoxic meds. (6) Obesity (BMI 30.0-34.9) Is this a current diagnosis for this admission?: Yes Plan: BMI 34.0. TSH WNL. Diet and lifestyle modification recommended.
[2019-08-15 09:57] LABS: ABSOLUTE LYMPHOCYTES# (MANUAL) 1.4 10^3/uL (0.5-4.7); ABSOLUTE MONOCYTES # (MANUAL) 0.9 10^3/uL (0.1-1.4); BASOPHILS % (MANUAL) 0 % (0-2); EOSINOPHILS % (MANUAL) 0 % (0-6); LYMPHOCYTES % (MANUAL) 12 % (13-45); METAMYELOCYTES % (MANUAL) 1 % (0-1); MONOCYTES % (MANUAL) 8 % (3-13); NUCLEATED RED BLOOD CELLS 1 /100 WBC (0); PLATELET COMMENT INCREASED; POLYCHROMASIA SLIGHT; SEGMENTED NEUTROPHILS % (MAN) 79 % (42-78); TOTAL CELLS COUNTED 100; TOXIC GRANULATION 1+
[2019-08-15 09:58] LABS: PLATELET CLUMPS PRESENT
[2019-08-15] MEDS ORDERED: CALCIUM CARBONATE 500 MG TABLET PO SCH (10:30)
[2019-08-15] MEDS: INSULIN LISPRO 100 UNIT/ML 3 ML VIAL SUBCUT SCH ×4 (10:50→21:27)
[2019-08-15] MEDS: CELECOXIB 200 MG CAPSULE PO SCH ×2 (10:57→17:12)
[2019-08-15] MEDS: POTASSIUM CHLORIDE 10 MEQ TABLET.ER PO SCH ×3 (10:57→17:12)
[2019-08-15] MEDS: DOCUSATE SODIUM 100 MG/10 ML UDC PO SCH (10:57)
[2019-08-15] MEDS: INSULIN GLARGINE,HUM.REC.ANLOG 1,000 UNIT/10 ML VIAL SUBCUT SCH (10:58)
[2019-08-15] MEDS: ENOXAPARIN SODIUM INJ 40 MG/0.4 ML DISP.SYRIN SUBCUT SCH ×2 (10:58→13:27)
[2019-08-15] MEDS: FAMOTIDINE 20 MG TABLET PO SCH ×2 (10:58→21:28)
[2019-08-15] MEDS: NORMAL SALINE 10 ML SDV (SCHEDULED) IV SCH ×2 (10:58→21:28)
--- NOTE | 2019-08-15 12:13 | PDOC PROGRESS REPORT ---
Subjective Progress Note for:: 08/15/19 Subjective:: Patient comfortable, no complaints Reason For Visit: SEPSIS, RIGHT AXILLARY ABSCESS, DIABETES Physical Exam Vital Signs: Temp Pulse Resp BP Pulse Ox 98.0 F 79 16 127/59 H 92 08/15/19 03:37 08/15/19 07:00 08/15/19 03:37 08/15/19 03:37 08/15/19 03:37 Intake & Output 08/14/19 08/15/19 08/16/19 06:59 06:59 06:59 Intake Total 2910 2630 Output Total 626 500 Balance 2284 2130 Weight 105.6 kg 107.9 kg General appearance: PRESENT: no acute distress Skin exam: PRESENT: other - Right upper extremity and right chest = right chest and right arm wounds are granulating, minimal drainage, no odor, no erythema, induration of the edges; right forearm wounds healing granulating, there is still skin violaceous discoloration with edema Results Laboratory Results: 08/15/19 05:20 08/15/19 05:20 08/14/19 08/14/19 08/15/19 18:03 18:03 05:20 WBC 13.5 H 11.7 H RBC 3.33 L 2.95 L Hgb 9.7 L 8.6 L Hct 28.9 L 25.9 L MCV 87 88 MCH 29.2 29.2 MCHC 33.6 33.2 RDW 13.3 13.2 Plt Count 511 H 509 H Seg Neutrophils % Not Reportable Not Reportable Sodium 136.1 L Potassium 3.3 L Chloride 99 Carbon Dioxide 29 Anion Gap 8 BUN 10 Creatinine 1.14 Est GFR ( Amer) > 60 Glucose 137 H Calcium 7.2 L 08/15/19 05:20 WBC RBC Hgb Hct MCV MCH MCHC RDW Plt Count Seg Neutrophils % Sodium 138.4 Potassium 3.6 Chloride 104 Carbon Dioxide 30 Anion Gap 4 L BUN 9 Creatinine 1.18 Est GFR ( Amer) > 60 Glucose 112 H Calcium 6.9 L* Impressions: Upper Extremity CT 08/10/19 12:35 IMPRESSION: Diffuse skin thickening and subcutaneous edema involving the right insula, medial right upper arm, and right lateral chest wall. No focal drainable abscess or underlying bone lesion. Guidance Fluoroscopy 08/14/19 00:00 IMPRESSION: Successful placement of a 5 Syriac double lumen PICC via the left brachial vein utilizing fluoroscopic and sonographic guidance. Interventional Vascular Procedure 08/14/19 00:00 IMPRESSION: Successful placement of a 5 Syriac double lumen PICC via the left brachial vein utilizing fluoroscopic and sonographic guidance. PICC Line Insertion 08/14/19 00:00 IMPRESSION: Successful placement of a 5 Syriac double lumen PICC via the left brachial vein utilizing fluoroscopic and sonographic guidance. Assessment & Plan - Diagnosis (1) Necrotizing fasciitis Is this a current diagnosis for this admission?: Yes - Time Time Spent with patient: 35 or more minutes - Plan Summary Plan Summary: Assessment: Postop day #5and 2 after extensive debridement of right chest, arm, and forearm necrotizing fasciitis Surgical cultures significant only for MSSA Current antibiotic regiment consisting of Ancef IV piggyback Surgical wounds are granulating and clean; however, there is violaceous discoloration with cutaneous changes in the right forearm volar aspect this has improved since yesterday Plan: Increase testing changes to twice daily wet-to-dry with normal saline Discharge planning in the next 1 to 2 days
[2019-08-15] MEDS: NORMAL SALINE 1000 ML 1,000 ML IV PRN ×2 (13:27→23:54)
[2019-08-15] MEDS: CALCIUM CARBONATE 500 MG TABLET PO SCH (17:11)
[2019-08-16] MEDS: CEFAZOLIN SODIUM 2 GM in DEXTROSE 5%-WATER 100 ML IV SCH ×3 (05:33→21:18)
[2019-08-16 06:25] LABS: HEMATOCRIT 28.4 % (37.9-51.0); HEMOGLOBIN 9.4 g/dL (13.5-17.0); MEAN CORPUSCULAR HEMOGLOBIN 29.3 pg (27.0-33.4); MEAN CORPUSCULAR HGB CONC 33.2 g/dL (32.0-36.0); MEAN CORPUSCULAR VOLUME 88 fl (80-97); PLATELET COUNT 628 10^3/uL (150-450); RED BLOOD COUNT 3.22 10^6/uL (4.35-5.55); RED CELL DISTRIBUTION WIDTH 13.2 % (11.5-14.0); WHITE BLOOD COUNT 12.7 10^3/uL (4.0-10.5)
[2019-08-16 06:46] LABS: ANION GAP 7 (5-19); BLOOD UREA NITROGEN 8 mg/dL (7-20); CARBON DIOXIDE 25 mmol/L (22-30); CHLORIDE 107 mmol/L (98-107); GLUCOSE 110 mg/dL (75-110); POTASSIUM 3.7 mmol/L (3.6-5.0)
[2019-08-16 07:12] LABS: CALCIUM 6.9 mg/dL (8.4-10.2)
[2019-08-16] MEDS ORDERED: CALCIUM GLUCONATE 1000 MG/10 ML INJ IV ONE (07:17)
[2019-08-16] MEDS: INSULIN LISPRO 100 UNIT/ML 3 ML VIAL SUBCUT SCH ×2 (08:38→19:33)
--- NOTE | 2019-08-16 08:59 | PDOC PROGRESS REPORT ---
Subjective Progress Note for:: 08/16/19 Subjective:: Right arm pain however improved Reason For Visit: SEPSIS, RIGHT AXILLARY ABSCESS, DIABETES Physical Exam Vital Signs: Temp Pulse Resp BP Pulse Ox 97.7 F 65 18 130/80 H 98 08/16/19 07:43 08/16/19 07:43 08/16/19 07:43 08/16/19 07:43 08/16/19 07:43 Intake & Output 08/15/19 08/16/19 08/17/19 06:59 06:59 06:59 Intake Total 2730 3030 Output Total 500 1400 Balance 2230 1630 Weight 107.9 kg 109.1 kg General appearance: PRESENT: mild distress Head exam: PRESENT: normocephalic Eye exam: PRESENT: EOMI Ear exam: PRESENT: normal external ear exam Mouth exam: PRESENT: moist Neck exam: PRESENT: full ROM Respiratory exam: PRESENT: clear to auscultation belinda Cardiovascular exam: PRESENT: RRR Pulses: PRESENT: normal radial pulses, normal femoral pulses Breast: PRESENT: Normal GI/Abdominal exam: PRESENT: soft Rectal exam: PRESENT: deferred Extremities exam: PRESENT: other Musculoskeletal exam: PRESENT: deformity Neurological exam: PRESENT: altered, awake, oriented to person, oriented to place Psychiatric exam: PRESENT: appropriate affect Skin exam: PRESENT: dry Results Laboratory Results: 08/16/19 05:15 08/16/19 05:15 08/15/19 08/15/19 08/16/19 05:20 05:20 05:15 WBC 11.7 H 12.7 H RBC 2.95 L 3.22 L Hgb 8.6 L 9.4 L Hct 25.9 L 28.4 L MCV 88 88 MCH 29.2 29.3 MCHC 33.2 33.2 RDW 13.2 13.2 Plt Count 509 H 628 H Seg Neutrophils % Not Reportable Sodium 138.4 Potassium 3.6 Chloride 104 Carbon Dioxide 30 Anion Gap 4 L BUN 9 Creatinine 1.18 Est GFR ( Amer) > 60 Glucose 112 H Calcium 6.9 L* 08/16/19 05:15 WBC RBC Hgb Hct MCV MCH MCHC RDW Plt Count Seg Neutrophils % Sodium 138.5 Potassium 3.7 Chloride 107 Carbon Dioxide 25 Anion Gap 7 BUN 8 Creatinine 0.95 Est GFR ( Amer) > 60 Glucose 110 Calcium 6.9 L* 08/10/19 15:30 Blood Blood Culture - Final NO GROWTH IN 5 DAYS 08/10/19 12:00 Blood Blood Culture - Final NO GROWTH IN 5 DAYS Impressions: Upper Extremity CT 08/10/19 12:35 IMPRESSION: Diffuse skin thickening and subcutaneous edema involving the right insula, medial right upper arm, and right lateral chest wall. No focal drainable abscess or underlying bone lesion. Guidance Fluoroscopy 08/14/19 00:00 IMPRESSION: Successful placement of a 5 Filipino double lumen PICC via the left brachial vein utilizing fluoroscopic and sonographic guidance. Interventional Vascular Procedure 08/14/19 00:00 IMPRESSION: Successful placement of a 5 Filipino double lumen PICC via the left brachial vein utilizing fluoroscopic and sonographic guidance. PICC Line Insertion 08/14/19 00:00 IMPRESSION: Successful placement of a 5 Filipino double lumen PICC via the left brachial vein utilizing fluoroscopic and sonographic guidance. Assessment & Plan - Time Time Spent with patient: 35 or more minutes - Plan Summary Plan Summary: Impression status post excising fasciitis of the right lateral chest wall and right upper arm the wounds are healing very well and starting to granulate there is no evidence of further of purulent drainage. I think that we could approximate the upper chest incisions with interrupted placed nylon suture at bedside in the next day or 2 as far as the right upper arm incision that is still has some superficial necrosis which requires we t-to-dry dressing changes and will probably be closed at a later date. However I think his can do the dressing changes of the upper arm once the chest wall incision has been approximated and he could probably be discharged home in the next couple of days.
[2019-08-16] MEDS ORDERED: CALCIUM GLUCONATE 2,000 MG in DEXTROSE 5%-WATER 100 ML IV ONE (09:00)
--- NOTE | 2019-08-16 09:10 | PDOC PROGRESS REPORT ---
Subjective Progress Note for:: 08/16/19 Subjective:: NANCY VALADEZ is a 58 year old male past medical history of diabetes not on antidiabetic, presenting to ED complaining of right axillary and right chest tenderness and swelling. Patient is stating that about 9 days ago he felt a mass in his right armpit, initially he did some warm compresses which is not resolved the mass, he noticed it was getting bigger and more tender, 4 days ago he decided to squeeze it and he noticed pus coming out of the mass and after that he noticed that the swelling and tenderness got progressively worse and extended to his right upper extremity and right chest. He is also complaining of right axillary pain 5/5, constant, worse with movement, nonradiating associated with fever and chills at home and 2 episodes of nonbloody vomiting yesterday and one episode of nonbloody diarrhea. Today he is denying any nausea, vomiting, shortness of breath, chest pain, abdominal pain, diarrhea, constipation or any urinary symptoms. 08/11/2019. Patient this morning comfortably sitting in bed in no apparent distress, enjoying his breakfast. Denies any fever, chills, nausea, vomiting, diarrhea, constipation or any urinary symptoms. 08/12/2019. No acute events overnight. Patient comfortably sitting in bed no apparent distress. Reporting significant improvement of his right upper extremity pain and swelling however still not able to move upper extremity much due to swelling and pain. Tolerant, ambulatory, having normal bowel and bladder movements. Denies any fever, chills, nausea, vomiting, diarrhea, constipation or any urinary symptoms. 08/13/2019. No acute events overnight. Patient complaining of right upper extremity and right anterior chest pain otherwise denies any fever, chills, nausea, vomiting, diarrhea, constipation or any urinary symptoms. Patient is n.p.o. for another I&D of his right axilla and right anterior chest abscess/cellulitis. 08/14/2019. No acute events overnight. Still complaining of right upper extremity pain and swelling. Has any fever, chills, nausea, vomiting, diarrhea, constipation or any urinary symptoms. P.o. tolerant. Having normal bowel bladder movement. 08/15/2019. No acute events overnight. Patient is again stable for another I&D by surgery. Right upper extremity swelling and pain improving, range of motion improving, denies any fever, chills, nausea, vomiting, diarrhea, constipation or any urinary symptoms. P.o. tolerant. Ambulatory. Having normal bowel and b ladder movements. 08/16/2019. No acute events overnight. Right upper extremity pain and swelling is improving, patient alert oriented x3 in no apparent distress, denies any fever, chills, nausea, vomiting, diarrhea, constipation or any urinary symptoms. Patient is n.p.o. for possible I&D today. Reason For Visit: SEPSIS, RIGHT AXILLARY ABSCESS, DIABETES Physical Exam Vital Signs: Temp Pulse Resp BP Pulse Ox 97.7 F 65 18 130/80 H 98 08/16/19 07:43 08/16/19 07:43 08/16/19 07:43 08/16/19 07:43 08/16/19 07:43 Intake & Output 08/15/19 08/16/19 08/17/19 06:59 06:59 06:59 Intake Total 2730 3030 Output Total 500 1400 Balance 2230 1630 Weight 107.9 kg 109.1 kg General appearance: PRESENT: obese Head exam: PRESENT: atraumatic, normocephalic Respiratory exam: PRESENT: clear to auscultation belinda. ABSENT: rales, rhonchi, wheezes Cardiovascular exam: PRESENT: RRR. ABSENT: diastolic murmur, rubs, systolic murmur Neurological exam: PRESENT: alert, awake, oriented to person, oriented to place, oriented to time, oriented to situation, CN II-XII grossly intact. ABSENT: motor sensory deficit Results Laboratory Results: 08/16/19 05:15 08/16/19 05:15 08/15/19 08/15/19 08/16/19 05:20 05:20 05:15 WBC 11.7 H 12.7 H RBC 2.95 L 3.22 L Hgb 8.6 L 9.4 L Hct 25.9 L 28.4 L MCV 88 88 MCH 29.2 29.3 MCHC 33.2 33.2 RDW 13.2 13.2 Plt Count 509 H 628 H Seg Neutrophils % Not Reportable Sodium 138.4 Potassium 3.6 Chloride 104 Carbon Dioxide 30 Anion Gap 4 L BUN 9 Creatinine 1.18 Est GFR ( Amer) > 60 Glucose 112 H Calcium 6.9 L* 08/16/19 05:15 WBC RBC Hgb Hct MCV MCH MCHC RDW Plt Count Seg Neutrophils % Sodium 138.5 Potassium 3.7 Chloride 107 Carbon Dioxide 25 Anion Gap 7 BUN 8 Creatinine 0.95 Est GFR ( Amer) > 60 Glucose 110 Calcium 6.9 L* 08/10/19 15:30 Blood Blood Culture - Final NO GROWTH IN 5 DAYS 08/10/19 12:00 Blood Blood Culture - Final NO GROWTH IN 5 DAYS Impressions: Upper Extremity CT 08/10/19 12:35 IMPRESSION: Diffuse skin thickening and subcutaneous edema involving the right insula, medial right upper arm, and right lateral chest wall. No focal drainable abscess or underlying bone lesion. Guidance Fluoroscopy 08/14/19 00:00 IMPRESSION: Successful placement of a 5 Malian double lumen PICC via the left brachial vein utilizing fluoroscopic and sonographic guidance. Interventional Vascular Procedure 08/14/19 00:00 IMPRESSION: Successful placement of a 5 Malian double lumen PICC via the left brachial vein utilizing fluoroscopic and sonographic guidance. PICC Line Insertion 08/14/19 00:00 IMPRESSION: Successful placement of a 5 Malian double lumen PICC via the left brachial vein utilizing fluoroscopic and sonographic guidance. Assessment and Plan - Diagnosis (1) Abscess of right axilla Is this a current diagnosis for this admission?: Yes Plan: Extensive right axillary, right anterior chest, right proximal upper extremity abscess and necrotizing fasciitis. Status post 3 I&D since admission. Initial wound culture growing MSSA. 08/10/2019 CT scan shows diffuse skin thickening and edema involving the right axilla medial right arm and right lateral chest wall. No abscess or underlying bone lesion. Day 7 IV antibiotics. Day 3 IV cefazolin. Received 4 days of IV vancomycin. Received 4 days of IV Zosyn. Infectious disease on board. Recommendation is to switch to IV cefazolin and switch to p.o. Keflex upon discharge. Continue IV antibiotics, follow-up wound and blood culture. Continue wound dressing. Surgery following. (2) Cellulitis Qualifiers: Site of cellulitis: extremity Site of cellulitis of extremity: upper extremity Laterality: right Qualified Code(s): L03.113 - Cellulitis of right upper limb Is this a current diagnosis for this admission?: Yes Plan: As per #1. (3) Sepsis Qualifiers: Sepsis type: sepsis due to unspecified organism Sepsis acute organ dysfunction status: unspecified Qualified Code(s): A41.9 - Sepsis, unspecified organism Is this a current diagnosis for this admission?: Yes Plan: Resolved. Vitals WNL. Due to problem #1. Presented with leukocytosis with bandemia, elevated creatinine, elevated lactic acid, elevated total bilirubin and tachycardia. (4) Diabetes Qualifiers: Diabetes mellitus type: type 2 Is this a current diagnosis for this admission?: Yes Plan: Controlled. Hemoglobin A1c 6.7%. Presented with blood glucose level of 309. Used to take oral antidiabetic but was taken off by PCP. Continue diabetic diet, basal, prandial and correctional insulin, hypoglycemia protocol, Accu-Chek. We will discharge home on oral antidiabetics. Diabetic education. (5) RENÉE (acute kidney injury) Is this a current diagnosis for this admission?: Yes Plan: Resolved. Prerenal. Most likely due to underlying sepsis. Electrolytes WNL. Continue monitoring volume status and electrolytes and replace as needed. Avoid nephrotoxic meds. (6) Obesity (BMI 30.0-34.9) Is this a current diagnosis for this admission?: Yes Plan: BMI 34.0. TSH WNL. Diet and lifestyle modification recommended.
[2019-08-16] MEDS: ENOXAPARIN SODIUM INJ 40 MG/0.4 ML DISP.SYRIN SUBCUT SCH (09:22)
[2019-08-16] MEDS: POTASSIUM CHLORIDE 10 MEQ TABLET.ER PO SCH ×3 (09:23→17:22)
[2019-08-16] MEDS: CALCIUM CARBONATE 500 MG TABLET PO SCH ×2 (09:23→17:22)
[2019-08-16] MEDS: DOCUSATE SODIUM 100 MG CAPSULE PO SCH (09:23)
[2019-08-16] MEDS: FAMOTIDINE 20 MG TABLET PO SCH ×2 (09:32→21:19)
[2019-08-16] MEDS: CELECOXIB 200 MG CAPSULE PO SCH ×2 (09:34→17:24)
[2019-08-16] MEDS: NORMAL SALINE 10 ML SDV (SCHEDULED) IV SCH ×2 (09:34→21:19)
[2019-08-16] MEDS: INSULIN GLARGINE,HUM.REC.ANLOG 1,000 UNIT/10 ML VIAL SUBCUT SCH (09:34)
[2019-08-16 18:31] LABS: APPEARANCE,URINE CLEAR; BILIRUBIN,URINE NEGATIVE (NEGATIVE); COLOR,URINE STRAW; GLUCOSE, URINE NEGATIVE (NEGATIVE); KETONES,URINE NEGATIVE (NEGATIVE); LEUKOCYTE ESTERASE,URINE NEGATIVE (NEGATIVE); NITRITE,URINE NEGATIVE (NEGATIVE); PROTEIN,URINE NEGATIVE (NEGATIVE); URINE SPECIFIC GRAVITY 1.006; UROBILINOGEN,URINE NEGATIVE mg/dL (<2.0)
[2019-08-16] MEDS: HYDROMORPHONE HCL INJ/PF 2 MG/ML AMPULE IV PRN (22:50)
[2019-08-17] MEDS: INSULIN LISPRO 100 UNIT/ML 3 ML VIAL SUBCUT SCH ×5 (02:12→22:05)
[2019-08-17] MEDS: CEFAZOLIN SODIUM 2 GM in DEXTROSE 5%-WATER 100 ML IV SCH ×3 (05:32→22:05)
[2019-08-17 06:02] LABS: HEMATOCRIT 27.9 % (37.9-51.0); HEMOGLOBIN 9.6 g/dL (13.5-17.0); MEAN CORPUSCULAR HEMOGLOBIN 29.8 pg (27.0-33.4); MEAN CORPUSCULAR HGB CONC 34.4 g/dL (32.0-36.0); MEAN CORPUSCULAR VOLUME 87 fl (80-97); PLATELET COUNT 669 10^3/uL (150-450); RED BLOOD COUNT 3.22 10^6/uL (4.35-5.55); RED CELL DISTRIBUTION WIDTH 13.3 % (11.5-14.0); WHITE BLOOD COUNT 10.5 10^3/uL (4.0-10.5)
[2019-08-17 06:31] LABS: ABSOLUTE MONOCYTES # (MANUAL) 0.9 10^3/uL (0.1-1.4); BASOPHILS % (MANUAL) 0 % (0-2); EOSINOPHILS % (MANUAL) 0 % (0-6); LYMPHOCYTES % (MANUAL) 29 % (13-45); MONOCYTES % (MANUAL) 9 % (3-13); SEGMENTED NEUTROPHILS % (MAN) 62 % (42-78); TOTAL CELLS COUNTED 100
[2019-08-17 06:32] LABS: ANION GAP 6 (5-19); BLOOD UREA NITROGEN 7 mg/dL (7-20); CALCIUM 8.5 mg/dL (8.4-10.2); CARBON DIOXIDE 29 mmol/L (22-30); CHLORIDE 104 mmol/L (98-107); GLUCOSE 103 mg/dL (75-110); OVALOCYTES SLIGHT; PLATELET COMMENT INCREASED; POIKILOCYTOSIS SLIGHT; POLYCHROMASIA SLIGHT; POTASSIUM 4.4 mmol/L (3.6-5.0); TEAR DROP CELLS SLIGHT; TOXIC GRANULATION SLIGHT; TOXIC VACUOLATION PRESENT
[2019-08-17] MEDS: CALCIUM CARBONATE 500 MG TABLET PO SCH ×2 (09:25→18:02)
[2019-08-17] MEDS: POTASSIUM CHLORIDE 10 MEQ TABLET.ER PO SCH ×3 (09:25→18:01)
[2019-08-17] MEDS: FAMOTIDINE 20 MG TABLET PO SCH ×2 (09:25→22:06)
[2019-08-17] MEDS: CHOLECALCIFEROL (D3) 1,000 UNIT (25 MCG) TABLET PO SCH (09:25)
[2019-08-17] MEDS: CELECOXIB 200 MG CAPSULE PO SCH ×2 (09:25→18:01)
[2019-08-17] MEDS: DOCUSATE SODIUM 100 MG CAPSULE PO SCH (09:26)
[2019-08-17] MEDS: INSULIN GLARGINE,HUM.REC.ANLOG 1,000 UNIT/10 ML VIAL SUBCUT SCH (09:26)
[2019-08-17] MEDS: NORMAL SALINE 10 ML SDV (SCHEDULED) IV SCH ×2 (09:27→22:06)
[2019-08-17] MEDS: ENOXAPARIN SODIUM INJ 40 MG/0.4 ML DISP.SYRIN SUBCUT SCH (09:27)
[2019-08-17] MEDS: NORMAL SALINE 1000 ML 1,000 ML IV PRN (09:28)
--- NOTE | 2019-08-17 10:30 | PDOC PROGRESS REPORT ---
Subjective Progress Note for:: 08/17/19 Subjective:: NANCY VALADEZ is a 58 year old male past medical history of diabetes not on antidiabetic, presenting to ED complaining of right axillary and right chest tenderness and swelling. Patient is stating that about 9 days ago he felt a mass in his right armpit, initially he did some warm compresses which is not resolved the mass, he noticed it was getting bigger and more tender, 4 days ago he decided to squeeze it and he noticed pus coming out of the mass and after that he noticed that the swelling and tenderness got progressively worse and extended to his right upper extremity and right chest. He is also complaining of right axillary pain 5/5, constant, worse with movement, nonradiating associated with fever and chills at home and 2 episodes of nonbloody vomiting yesterday and one episode of nonbloody diarrhea. Today he is denying any nausea, vomiting, shortness of breath, chest pain, abdominal pain, diarrhea, constipation or any urinary symptoms. 08/11/2019. Patient this morning comfortably sitting in bed in no apparent distress, enjoying his breakfast. Denies any fever, chills, nausea, vomiting, diarrhea, constipation or any urinary symptoms. 08/12/2019. No acute events overnight. Patient comfortably sitting in bed no apparent distress. Reporting significant improvement of his right upper extremity pain and swelling however still not able to move upper extremity much due to swelling and pain. Tolerant, ambulatory, having normal bowel and bladder movements. Denies any fever, chills, nausea, vomiting, diarrhea, constipation or any urinary symptoms. 08/13/2019. No acute events overnight. Patient complaining of right upper extremity and right anterior chest pain otherwise denies any fever, chills, nausea, vomiting, diarrhea, constipation or any urinary symptoms. Patient is n.p.o. for another I&D of his right axilla and right anterior chest abscess/cellulitis. 08/14/2019. No acute events overnight. Still complaining of right upper extremity pain and swelling. Has any fever, chills, nausea, vomiting, diarrhea, constipation or any urinary symptoms. P.o. tolerant. Having normal bowel bladder movement. 08/15/2019. No acute events overnight. Patient is again stable for another I&D by surgery. Right upper extremity swelling and pain improving, range of motion improving, denies any fever, chills, nausea, vomiting, diarrhea, constipation or any urinary symptoms. P.o. tolerant. Ambulatory. Having normal bowel and b ladder movements. 08/16/2019. No acute events overnight. Right upper extremity pain and swelling is improving, patient alert oriented x3 in no apparent distress, denies any fever, chills, nausea, vomiting, diarrhea, constipation or any urinary symptoms. Patient is n.p.o. for possible I&D today. 08/17/2019. No acute events overnight. Right upper extremity tenderness and swelling improving, alert and oriented x3 in no apparent distress, denies any fever, chills, nausea, vomiting, diarrhea, constipation or any urinary symptoms. Ambulatory, p.o. tolerant, having normal bowel and bladder movements. Reason For Visit: SEPSIS, RIGHT AXILLARY ABSCESS, DIABETES Physical Exam Vital Signs: Temp Pulse Resp BP Pulse Ox 98.1 F 65 16 128/82 H 96 08/17/19 07:43 08/17/19 07:43 08/17/19 07:43 08/17/19 07:43 08/17/19 07:43 Intake & Output 08/16/19 08/17/19 08/18/19 06:59 06:59 06:59 Intake Total 3030 3312 Output Total 1400 3450 Balance 1630 -138 Weight 109.1 kg 112.2 kg 112.2 kg General appearance: PRESENT: no acute distress, well-developed, well-nourished Head exam: PRESENT: atraumatic, normocephalic Respiratory exam: PRESENT: clear to auscultation belinda. ABSENT: rales, rhonchi, wheezes Cardiovascular exam: PRESENT: RRR. ABSENT: diastolic murmur, rubs, systolic murmur GI/Abdominal exam: PRESENT: normal bowel sounds, soft. ABSENT: distended, guarding, mass, organolmegaly, rebound, tenderness Musculoskeletal exam: PRESENT: other - Right anterior chest, right upper extremity wound looks clean, dressing in place, no erythema or tenderness neurovascularly intact. Neurological exam: PRESENT: alert, awake, oriented to person, oriented to place, oriented to time, oriented to situation, CN II-XII grossly intact. ABSENT: motor sensory deficit Results Laboratory Results: 08/17/19 05:40 08/17/19 05:40 08/16/19 08/17/19 08/17/19 17:50 05:40 05:40 WBC 10.5 RBC 3.22 L Hgb 9.6 L Hct 27.9 L MCV 87 MCH 29.8 MCHC 34.4 RDW 13.3 Plt Count 669 H Seg Neutrophils % Not Reportable Sodium 139.3 Potassium 4.4 Chloride 104 Carbon Dioxide 29 Anion Gap 6 BUN 7 Creatinine 1.08 Est GFR ( Amer) > 60 Glucose 103 Calcium 8.5 Urine Color STRAW Urine Appearance CLEAR Urine pH 6.0 Ur Specific [place] 1.006 Urine Protein NEGATIVE Urine Glucose (UA) NEGATIVE Urine Ketones NEGATIVE Urine Blood NEGATIVE Urine Nitrite NEGATIVE Ur Leukocyte Esterase NEGATIVE Urine WBC (Auto) 1 Urine RBC (Auto) 0 Impressions: Upper Extremity CT 08/10/19 12:35 IMPRESSION: Diffuse skin thickening and subcutaneous edema involving the right insula, medial right upper arm, and right lateral chest wall. No focal drainable abscess or underlying bone lesion. Guidance Fluoroscopy 08/14/19 00:00 IMPRESSION: Successful placement of a 5 Latvian double lumen PICC via the left brachial vein utilizing fluoroscopic and sonographic guidance. Interventional Vascular Procedure 08/14/19 00:00 IMPRESSION: Successful placement of a 5 Latvian double lumen PICC via the left brachial vein utilizing fluoroscopic and sonographic guidance. PICC Line Insertion 08/14/19 00:00 IMPRESSION: Successful placement of a 5 Latvian double lumen PICC via the left brachial vein utilizing fluoroscopic and sonographic guidance. Assessment and Plan - Diagnosis (1) Abscess of right axilla Is this a current diagnosis for this admission?: Yes Plan: Extensive right axillary, right anterior chest, right proximal upper extremity abscess and necrotizing fasciitis. Status post 3 I&D since admission. Initial wound culture growing MSSA. 08/10/2019 CT scan shows diffuse skin thickening and edema involving the right axilla medial right arm and right lateral chest wall. No abscess or underlying bone lesion. Day 8 IV antibiotics. Day 4 IV cefazolin. Received 4 days of IV vancomycin. Received 4 days of IV Zosyn. Infectious disease on board. Recommendation is to switch to IV cefazolin and switch to p.o. Keflex upon discharge. Continue IV antibiotics, follow-up wound and blood culture. Continue wound dressing. Surgery following. (2) Cellulitis Qualifiers: Site of cellulitis: extremity Site of cellulitis of extremity: upper extremity Laterality: right Qualified Code(s): L03.113 - Cellulitis of right upper limb Is this a current diagnosis for this admission?: Yes Plan: As per #1. (3) Sepsis Qualifiers: Sepsis type: sepsis due to unspecified organism Sepsis acute organ dysfunction status: unspecified Qualified Code(s): A41.9 - Sepsis, unspecified organism Is this a current diagnosis for this admission?: Yes Plan: Resolved. Vitals WNL. Due to problem #1. Presented with leukocytosis with bandemia, elevated creatinine, elevated lactic acid, elevated total bilirubin and tachycardia. (4) Diabetes Qualifiers: Diabetes mellitus type: type 2 Is this a current diagnosis for this admission?: Yes Plan: Controlled. Hemoglobin A1c 6.7%. Presented with blood glucose level of 309. Used to take oral antidiabetic but was taken off by PCP. Continue diabetic diet, basal, prandial and correctional insulin, hypoglycemia protocol, Accu-Chek. We will discharge home on oral antidiabetics. Diabetic education. (5) RENÉE (acute kidney injury) Is this a current diagnosis for this admission?: Yes Plan: Resolved. Prerenal. Most likely due to underlying sepsis. Electrolytes WNL. Continue monitoring volume status and electrolytes and replace as needed. Avoid nephrotoxic meds. (6) Obesity (BMI 30.0-34.9) Is this a current diagnosis for this admission?: Yes Plan: BMI 34.0. TSH WNL. Diet and lifestyle modification recommended.
[2019-08-17] MEDS: HYDROMORPHONE HCL INJ/PF 2 MG/ML AMPULE IV PRN (12:46)
--- NOTE | 2019-08-17 13:13 | PDOC PROGRESS REPORT ---
Subjective Progress Note for:: 08/17/19 Subjective:: Patient is comfortable, he has no complaints Reason For Visit: SEPSIS, RIGHT AXILLARY ABSCESS, DIABETES Physical Exam Vital Signs: Temp Pulse Resp BP Pulse Ox 98.1 F 68 16 120/80 99 08/17/19 11:49 08/17/19 11:49 08/17/19 11:49 08/17/19 11:49 08/17/19 11:49 Intake & Output 08/16/19 08/17/19 08/18/19 06:59 06:59 06:59 Intake Total 3030 3312 740 Output Total 1400 3450 1000 Balance 1630 -138 -260 Weight 109.1 kg 112.2 kg 112.2 kg Neurological exam: PRESENT: other - Right upper extremity = motor and sensory function maintained Skin exam: PRESENT: other - Right chest= wound granulating, no drainage or odor, single nylon suture partially holding the long suture edge right upper extremity = medial aspect, wound granulating, with few areas of fibrinous material, no odor, no discharge, healthy appearing Results Laboratory Results: 08/17/19 05:40 08/17/19 05:40 08/16/19 08/17/19 08/17/19 17:50 05:40 05:40 WBC 10.5 RBC 3.22 L Hgb 9.6 L Hct 27.9 L MCV 87 MCH 29.8 MCHC 34.4 RDW 13.3 Plt Count 669 H Seg Neutrophils % Not Reportable Sodium 139.3 Potassium 4.4 Chloride 104 Carbon Dioxide 29 Anion Gap 6 BUN 7 Creatinine 1.08 Est GFR ( Amer) > 60 Glucose 103 Calcium 8.5 Urine Color STRAW Urine Appearance CLEAR Urine pH 6.0 Ur Specific [place] 1.006 Urine Protein NEGATIVE Urine Glucose (UA) NEGATIVE Urine Ketones NEGATIVE Urine Blood NEGATIVE Urine Nitrite NEGATIVE Ur Leukocyte Esterase NEGATIVE Urine WBC (Auto) 1 Urine RBC (Auto) 0 Impressions: Upper Extremity CT 08/10/19 12:35 IMPRESSION: Diffuse skin thickening and subcutaneous edema involving the right insula, medial right upper arm, and right lateral chest wall. No focal drainable abscess or underlying bone lesion. Guidance Fluoroscopy 08/14/19 00:00 IMPRESSION: Successful placement of a 5 [place] double lumen PICC via the left brachial vein utilizing fluoroscopic and sonographic guidance. Interventional Vascular Procedure 08/14/19 00:00 IMPRESSION: Successful placement of a 5 [place] double lumen PICC via the left brachial vein utilizing fluoroscopic and sonographic guidance. PICC Line Insertion 08/14/19 00:00 IMPRESSION: Successful placement of a 5 Dive[place] double lumen PICC via the left brachial vein utilizing fluoroscopic and sonographic guidance. Assessment & Plan - Diagnosis (1) Necrotizing fasciitis Is this a current diagnosis for this admission?: Yes - Time Time Spent with patient: 25-34 minutes - Plan Summary Plan Summary: Assessment: Day #7 and 4 following debridement of right upper chest and right upper extremity) arm and forearm) necrotizing fasciitis Cultures positive only for MSSA 3 wounds are present: 1 in the right upper chest, the second in the right medial arm, the third in the right forearm all granulating and clean except for the medial arm wound which has some fibrinous material Plan: Partial closure of the right upper chest wound tomorrow with known sutures If the patient is stable, he will be discharged to home tomorrow with dressing changes twice a day by family members Follow-up with Dr. Brasher in 2 weeks
[2019-08-17] MEDS: OXYCODONE-ACETAMINOPHEN 5-325 MG TABLET PO PRN (20:16)
[2019-08-17] MEDS ORDERED: LIDOCAINE 1%/EPINEPHRINE INJ 20 ML VIAL ONE (20:48)
[2019-08-18] MEDS: CEFAZOLIN SODIUM 2 GM in DEXTROSE 5%-WATER 100 ML IV SCH ×3 (05:52→21:47)
[2019-08-18] MEDS: INSULIN LISPRO 100 UNIT/ML 3 ML VIAL SUBCUT SCH ×4 (07:31→21:48)
[2019-08-18] MEDS: POTASSIUM CHLORIDE 10 MEQ TABLET.ER PO SCH ×3 (08:08→17:11)
[2019-08-18] MEDS: CALCIUM CARBONATE 500 MG TABLET PO SCH ×2 (08:09→17:10)
[2019-08-18] MEDS: FAMOTIDINE 20 MG TABLET PO SCH ×2 (09:20→21:47)
[2019-08-18] MEDS: CHOLECALCIFEROL (D3) 1,000 UNIT (25 MCG) TABLET PO SCH (09:20)
[2019-08-18] MEDS: DOCUSATE SODIUM 100 MG CAPSULE PO SCH (09:20)
[2019-08-18] MEDS: CELECOXIB 200 MG CAPSULE PO SCH ×2 (09:20→17:11)
[2019-08-18] MEDS: INSULIN GLARGINE,HUM.REC.ANLOG 1,000 UNIT/10 ML VIAL SUBCUT SCH (09:21)
[2019-08-18] MEDS: ENOXAPARIN SODIUM INJ 40 MG/0.4 ML DISP.SYRIN SUBCUT SCH (09:22)
[2019-08-18] MEDS: NORMAL SALINE 10 ML SDV (SCHEDULED) IV SCH ×2 (09:22→21:48)
--- NOTE | 2019-08-18 09:43 | PDOC PROGRESS REPORT ---
Subjective Progress Note for:: 08/18/19 Subjective:: NANCY VALADEZ is a 58 year old male past medical history of diabetes not on antidiabetic, presenting to ED complaining of right axillary and right chest tenderness and swelling. Patient is stating that about 9 days ago he felt a mass in his right armpit, initially he did some warm compresses which is not resolved the mass, he noticed it was getting bigger and more tender, 4 days ago he decided to squeeze it and he noticed pus coming out of the mass and after that he noticed that the swelling and tenderness got progressively worse and extended to his right upper extremity and right chest. He is also complaining of right axillary pain 5/5, constant, worse with movement, nonradiating associated with fever and chills at home and 2 episodes of nonbloody vomiting yesterday and one episode of nonbloody diarrhea. Today he is denying any nausea, vomiting, shortness of breath, chest pain, abdominal pain, diarrhea, constipation or any urinary symptoms. 08/11/2019. Patient this morning comfortably sitting in bed in no apparent distress, enjoying his breakfast. Denies any fever, chills, nausea, vomiting, diarrhea, constipation or any urinary symptoms. 08/12/2019. No acute events overnight. Patient comfortably sitting in bed no apparent distress. Reporting significant improvement of his right upper extremity pain and swelling however still not able to move upper extremity much due to swelling and pain. Tolerant, ambulatory, having normal bowel and bladder movements. Denies any fever, chills, nausea, vomiting, diarrhea, constipation or any urinary symptoms. 08/13/2019. No acute events overnight. Patient complaining of right upper extremity and right anterior chest pain otherwise denies any fever, chills, nausea, vomiting, diarrhea, constipation or any urinary symptoms. Patient is n.p.o. for another I&D of his right axilla and right anterior chest abscess/cellulitis. 08/14/2019. No acute events overnight. Still complaining of right upper extremity pain and swelling. Has any fever, chills, nausea, vomiting, diarrhea, constipation or any urinary symptoms. P.o. tolerant. Having normal bowel bladder movement. 08/15/2019. No acute events overnight. Patient is again stable for another I&D by surgery. Right upper extremity swelling and pain improving, range of motion improving, denies any fever, chills, nausea, vomiting, diarrhea, constipation or any urinary symptoms. P.o. tolerant. Ambulatory. Having normal bowel and b ladder movements. 08/16/2019. No acute events overnight. Right upper extremity pain and swelling is improving, patient alert oriented x3 in no apparent distress, denies any fever, chills, nausea, vomiting, diarrhea, constipation or any urinary symptoms. Patient is n.p.o. for possible I&D today. 08/17/2019. No acute events overnight. Right upper extremity tenderness and swelling improving, alert and oriented x3 in no apparent distress, denies any fever, chills, nausea, vomiting, diarrhea, constipation or any urinary symptoms. Ambulatory, p.o. tolerant, having normal bowel and bladder movements. 08/18/2019. Saw patient this morning, enjoying his breakfast in no apparent distress, right upper extremity swelling and pain improving, range of motion improving. Denies any fever, chills, nausea, vomiting, diarrhea, constipation or any urinary symptoms. Reason For Visit: SEPSIS, RIGHT AXILLARY ABSCESS, DIABETES Physical Exam Vital Signs: Temp Pulse Resp BP Pulse Ox 98.3 F 74 16 133/86 H 95 08/18/19 07:17 08/18/19 07:17 08/18/19 07:17 08/18/19 07:17 08/18/19 07:17 Intake & Output 08/17/19 08/18/19 08/19/19 06:59 06:59 06:59 Intake Total 3312 2930 100 Output Total 3450 3100 Balance -138 -170 100 Weight 112.2 kg 108.3 kg General appearance: PRESENT: no acute distress, obese, well-developed, well- nourished Head exam: PRESENT: atraumatic, normocephalic Respiratory exam: PRESENT: clear to auscultation belinda. ABSENT: rales, rhonchi, wheezes Cardiovascular exam: PRESENT: RRR. ABSENT: diastolic murmur, rubs, systolic murmur GI/Abdominal exam: PRESENT: normal bowel sounds, soft. ABSENT: distended, guarding, mass, organolmegaly, rebound, tenderness Musculoskeletal exam: PRESENT: other - Right anterior chest, proximal right upper extremity wound looks clean, range of motion improving, swelling improving, neurovascularly intact. Neurological exam: PRESENT: alert, awake, oriented to person, oriented to place, oriented to time, oriented to situation, CN II-XII grossly intact. ABSENT: motor sensory deficit Results Laboratory Results: 08/17/19 05:40 08/17/19 05:40 Impressions: Upper Extremity CT 08/10/19 12:35 IMPRESSION: Diffuse skin thickening and subcutaneous edema involving the right insula, medial right upper arm, and right lateral chest wall. No focal drainable abscess or underlying bone lesion. Guidance Fluoroscopy 08/14/19 00:00 IMPRESSION: Successful placement of a 5 Lithuanian double lumen PICC via the left brachial vein utilizing fluoroscopic and sonographic guidance. Interventional Vascular Procedure 08/14/19 00:00 IMPRESSION: Successful placement of a 5 Lithuanian double lumen PICC via the left brachial vein utilizing fluoroscopic and sonographic guidance. PICC Line Insertion 08/14/19 00:00 IMPRESSION: Successful placement of a 5 Lithuanian double lumen PICC via the left brachial vein utilizing fluoroscopic and sonographic guidance. Assessment and Plan - Diagnosis (1) Abscess of right axilla Is this a current diagnosis for this admission?: Yes Plan: Extensive right axillary, right anterior chest, right proximal upper extremity abscess and necrotizing fasciitis. Status post 4 I&D since admission. Initial wound culture growing MSSA. 08/10/2019 CT scan shows diffuse skin thickening and edema involving the right axilla medial right arm and right lateral chest wall. No abscess or underlying bone lesion. Day 9 IV antibiotics. Day 5 IV cefazolin. Received 4 days of IV vancomycin. Received 4 days of IV Zosyn. Infectious disease on board. Recommendation is to switch to IV cefazolin and switch to p.o. Keflex upon discharge. Continue IV antibiotics, follow-up wound and blood culture. Continue wound dressing. Surgery following. (2) Cellulitis Qualifiers: Site of cellulitis: extremity Site of cellulitis of extremity: upper extremity Laterality: right Qualified Code(s): L03.113 - Cellulitis of right upper limb Is this a current diagnosis for this admission?: Yes Plan: As per #1. (3) Sepsis Qualifiers: Sepsis type: sepsis due to unspecified organism Sepsis acute organ dysfunction status: unspecified Qualified Code(s): A41.9 - Sepsis, unspecified organism Is this a current diagnosis for this admission?: Yes Plan: Resolved. Vitals WNL. Due to problem #1. Presented with leukocytosis with bandemia, elevated creatinine, elevated lactic acid, elevated total bilirubin and tachycardia. (4) Diabetes Qualifiers: Diabetes mellitus type: type 2 Is this a current diagnosis for this admission?: Yes Plan: Controlled. Hemoglobin A1c 6.7%. Presented with blood glucose level of 309. Used to take oral antidiabetic but was taken off by PCP. Continue diabetic diet, basal, prandial and correctional insulin, hypoglycemia protocol, Accu-Chek. We will discharge home on oral antidiabetics. Diabetic education. (5) RENÉE (acute kidney injury) Is this a current diagnosis for this admission?: Yes Plan: Resolved. Prerenal. Most likely due to underlying sepsis. Electrolytes WNL. Continue monitoring volume status and electrolytes and replace as needed. Avoid nephrotoxic meds. (6) Obesity (BMI 30.0-34.9) Is this a current diagnosis for this admission?: Yes Plan: BMI 34.0. TSH WNL. Diet and lifestyle modification recommended.
[2019-08-18] MEDS: OXYCODONE-ACETAMINOPHEN 5-325 MG TABLET PO PRN ×2 (10:05→21:47)
[2019-08-18] MEDS ORDERED: LIDOCAINE 1% INJ-PF (10 MG/ML) 30 ML SDV ONE (11:04)
--- NOTE | 2019-08-18 11:33 | PDOC PROGRESS REPORT ---
Subjective Progress Note for:: 08/18/19 Subjective:: Patient is comfortable, no complaints Reason For Visit: SEPSIS, RIGHT AXILLARY ABSCESS, DIABETES Physical Exam Vital Signs: Temp Pulse Resp BP Pulse Ox 98.3 F 74 16 133/86 H 95 08/18/19 07:17 08/18/19 07:17 08/18/19 07:17 08/18/19 07:17 08/18/19 07:17 Intake & Output 08/17/19 08/18/19 08/19/19 06:59 06:59 06:59 Intake Total 3312 2930 100 Output Total 3450 3100 Balance -138 -170 100 Weight 112.2 kg 108.3 kg Extremities exam: PRESENT: other - Wounds of right axilla, right arm, and right forearm are granulating and clean, minimal edema and induration, no erythema, no odor, no drainage Results Laboratory Results: 08/17/19 05:40 08/17/19 05:40 Impressions: Upper Extremity CT 08/10/19 12:35 IMPRESSION: Diffuse skin thickening and subcutaneous edema involving the right insula, medial right upper arm, and right lateral chest wall. No focal drainable abscess or underlying bone lesion. Guidance Fluoroscopy 08/14/19 00:00 IMPRESSION: Successful placement of a 5 [place] double lumen PICC via the left brachial vein utilizing fluoroscopic and sonographic guidance. Interventional Vascular Procedure 08/14/19 00:00 IMPRESSION: Successful placement of a 5 Maldivian double lumen PICC via the left brachial vein utilizing fluoroscopic and sonographic guidance. PICC Line Insertion 08/14/19 00:00 IMPRESSION: Successful placement of a 5 [place] double lumen PICC via the left brachial vein utilizing fluoroscopic and sonographic guidance. Assessment & Plan - Diagnosis (1) Necrotizing fasciitis Is this a current diagnosis for this admission?: Yes - Time Time Spent with patient: 35 or more minutes - Plan Summary Plan Summary: Assessment: Day #7 and 4 following debridement of right upper chest and right upper extremity) arm and forearm) necrotizing fasciitis Cultures positive only for MSSA 3 wounds are present: 1 in the right upper chest, the second in the right medial arm, the third in the right forearm all granulating and clean Plan: Partial closure of the right upper chest wound performed at bedside today Continue wet-to-dry dressing changes of all 3 wounds, use NS moist 4x4 for axillary wound, use NS moist Kerlix roll for arm and forearm wounds OK to discharge patient to home today with dressing changes twice a day by family members Follow-up with Dr. Brasher in 1 week from today Home Health nurse to see patient every other day
--- NOTE | 2019-08-18 11:37 | Operative Report ---
Nonrecallable Operative Report DATE OF SURGERY: 08/18/19 PREOPERATIVE DIAGNOSIS: Status post necrotizing fasciitis right axilla and the right upper extremity; status post surgical wound right axilla measuring 15 x 5 cm POSTOPERATIVE DIAGNOSIS: Same OPERATION: Secondary closure right axillary surgical wound 15 x 5 cm SURGEON: LACEY ZEE ANESTHESIA: Local - 40 mL's of 1% lidocaine TISSUE REMOVED OR ALTERED: None COMPLICATIONS: None ESTIMATED BLOOD LOSS: Negligible INTRAOPERATIVE FINDINGS: Large granulating wound of the right axilla 15 x 5 cm in size PROCEDURE: The procedure was done at bedside, the right axilla skin was prepped with Betadine, draped in a sterile fashion, the skin was infiltrated with 1% lidocaine and about 4 interrupted [id number] 2-0 nylon sutures were placed to loosely approximate the wound edges. The wound edge openings were packed with individual normal saline moist 4 x 4, sterile dressings were applied with tape. The patient tolerated procedure well.
[2019-08-19] MEDS: CEFAZOLIN SODIUM 2 GM in DEXTROSE 5%-WATER 100 ML IV SCH (05:56)
[2019-08-19 06:16] LABS: HEMATOCRIT 27.7 % (37.9-51.0); HEMOGLOBIN 9.3 g/dL (13.5-17.0); MEAN CORPUSCULAR HEMOGLOBIN 29.2 pg (27.0-33.4); MEAN CORPUSCULAR HGB CONC 33.5 g/dL (32.0-36.0); MEAN CORPUSCULAR VOLUME 87 fl (80-97); PLATELET COUNT 667 10^3/uL (150-450); RED BLOOD COUNT 3.18 10^6/uL (4.35-5.55); RED CELL DISTRIBUTION WIDTH 13.1 % (11.5-14.0); WHITE BLOOD COUNT 7.1 10^3/uL (4.0-10.5)
[2019-08-19] MEDS: INSULIN LISPRO 100 UNIT/ML 3 ML VIAL SUBCUT SCH ×2 (08:07→12:08)
[2019-08-19] MEDS: POTASSIUM CHLORIDE 10 MEQ TABLET.ER PO SCH (08:32)
[2019-08-19] MEDS: CALCIUM CARBONATE 500 MG TABLET PO SCH (08:32)
[2019-08-19 08:54] VITALS: BP 114/79
[2019-08-19] MEDS: OXYCODONE-ACETAMINOPHEN 5-325 MG TABLET PO PRN (09:17)
[2019-08-19] MEDS: FAMOTIDINE 20 MG TABLET PO SCH (09:18)
[2019-08-19] MEDS: CHOLECALCIFEROL (D3) 1,000 UNIT (25 MCG) TABLET PO SCH (09:18)
[2019-08-19] MEDS: DOCUSATE SODIUM 100 MG CAPSULE PO SCH (09:18)
[2019-08-19] MEDS: ENOXAPARIN SODIUM INJ 40 MG/0.4 ML DISP.SYRIN SUBCUT SCH (09:18)
[2019-08-19] MEDS: CELECOXIB 200 MG CAPSULE PO SCH (09:18)
[2019-08-19] MEDS: NORMAL SALINE 10 ML SDV (SCHEDULED) IV SCH (09:19)
[2019-08-19] MEDS: INSULIN GLARGINE,HUM.REC.ANLOG 1,000 UNIT/10 ML VIAL SUBCUT SCH (09:20)
--- NOTE | 2019-08-19 09:34 | PDOC DISCHARGE SUMMARY ---
Impression - Admit/DC Date/PCP Admission Date/Primary Care Provider: 08/10/19 14:18 KYE MERCHANT MD Discharge Date: 08/19/19 - Discharge Diagnosis (1) Abscess of right axilla Is this a current diagnosis for this admission?: Yes (2) Cellulitis Is this a current diagnosis for this admission?: Yes (3) Sepsis Is this a current diagnosis for this admission?: Yes (4) Diabetes Is this a current diagnosis for this admission?: Yes (5) RENÉE (acute kidney injury) Is this a current diagnosis for this admission?: Yes (6) Obesity (BMI 30.0-34.9) Is this a current diagnosis for this admission?: Yes - Additional Information Resuscitation Status: Full Code Discharge Diet: As Tolerated Discharge Activity: Activity As Tolerated, Balance Activity w/Rest Referrals: SAWYER MARTÍNEZ MD [ACTIVE STAFF] - 08/26/19 2:15 pm KYE MERCHANT MD [Primary Care Provider] - 08/22/19 8:45 am Prescriptions: Cephalexin Monohydrate [Keflex 500 mg Capsule] 500 mg PO Q8 7 Days #21 capsule Metformin HCl 1,000 mg PO BID 30 Days #60 tablet Oxycodone HCl/Acetaminophen [Percocet 5-325 mg Tablet] 1 tab PO Q8 5 Days #15 tab Cholecalciferol (Vitamin D3) [Vitamin D3 2000 unit Tablet] 2,000 unit PO DAILY 30 Days #30 tablet Home Medications: Cephalexin Monohydrate [Keflex 500 mg Capsule] 500 mg PO Q8 7 Days #21 capsule 08/19/19 Cholecalciferol (Vitamin D3) [Vitamin D3 2000 unit Tablet] 2,000 unit PO DAILY 30 Days #30 tablet 08/19/19 Metformin HCl 1,000 mg PO BID 30 Days #60 tablet 08/19/19 Oxycodone HCl/Acetaminophen [Percocet 5-325 mg Tablet] 1 tab PO Q8 5 Days #15 tab 08/19/19 History of Present Illiness History of Present Illness: NANCY VAALDEZ is a 58 year old male past medical history of diabetes not on antidiabetic, presenting to ED complaining of right axillary and right chest tenderness and swelling. Patient is stating that about 9 days ago he felt a mass in his right armpit, initially he did some warm compresses which is not resolved the mass, he noticed it was getting bigger and more tender, 4 days ago he decided to squeeze it and he noticed pus coming out of the mass and after that he noticed that the swelling and tenderness got progressively worse and extended to his right upper extremity and right chest. He is also complaining of right axillary pain 5/5, constant, worse with movement, nonradiating associated with fever and chills at home and 2 episodes of nonbloody vomiting yesterday and one episode of nonbloody diarrhea. Today he is denying any nausea, vomiting, shortness of breath, chest pain, abdominal pain, diarrhea, constipation or any urinary symptoms. Hospital Course Hospital Course: (1) Abscess of right axilla Extensive right axillary, right anterior chest, right proximal upper extremity abscess and necrotizing fasciitis. Status post 4 I&D since admission. Initial wound culture growing MSSA. 08/10/2019 CT scan shows diffuse skin thickening and edema involving the right axilla medial right arm and right lateral chest wall. No abscess or underlying bone lesion. Received 10 days of IV antibiotics. Received 6 days of IV cefazolin. Received 4 days of IV vancomycin. Received 4 days of IV Zosyn. Infectious disease consulted. Recommendation was to continue IV cefazolin and transition to p.o. Keflex upon discharge. Blood cultures remain negative. Was discharged on Keflex p.o. every 8 for another 7 days. Was advised to follow-up with Dr. Martínez as outpatient in 1 week. Discharged on home health with wet-to-dry dressing changes daily at home. Patient's was educated on how to do daily dressing. (2) Cellulitis As per #1. (3) Sepsis Resolved. Vitals WNL. Due to problem #1. Presented with leukocytosis with bandemia, elevated creatinine, elevated lactic acid, elevated total bilirubin and tachycardia. All blood cultures remain negative. Afebrile and WBC WNL on the time of discharge. (4) Diabetes Controlled. Hemoglobin A1c 6.7%. Presented with blood glucose level of 309. Used to take oral antidiabetic but was taken off by PCP. Started on diabetic diet, basal, prandial and correctional insulin, hypoglycemia protocol, Accu-Chek. Diabetic education provided. Was discharged on metformin 1000 mg p.o. twice daily and instructed to follow-up with PCP for adjustment and reevaluation of hemoglobin A1c. (5) RENÉE (acute kidney injury) Resolved. Prerenal. Most likely due to underlying sepsis. Electrolytes WNL. Initially started on cautious volume resuscitation. Avoiding nephrotoxic meds. Advised patient to avoid nephrotoxic meds in the future and follow-up with PCP. (6) Obesity (BMI 30.0-34.9) BMI 34.0. TSH WNL. Diet and lifestyle modification recommended. Physical Exam Vital Signs: Temp Pulse Resp BP Pulse Ox 98.0 F 62 16 114/79 94 08/19/19 08:51 08/19/19 08:51 08/19/19 08:51 08/19/19 08:51 08/19/19 08:51 Intake & Output 08/18/19 08/19/19 08/20/19 06:59 06:59 06:59 Intake Total 2930 1560 100 Output Total 3100 500 Balance -170 1060 100 Weight 108.3 kg 108.6 kg General appearance: PRESENT: obese Head exam: PRESENT: atraumatic, normocephalic Respiratory exam: PRESENT: clear to auscultation belinda. ABSENT: rales, rhonchi, wheezes Cardiovascular exam: PRESENT: RRR. ABSENT: diastolic murmur, rubs, systolic murmur GI/Abdominal exam: PRESENT: normal bowel sounds, soft. ABSENT: distended, guarding, mass, organolmegaly, rebound, tenderness Extremities exam: PRESENT: other - Right anterior chest, right medial aspect of right upper extremity wounds look clean with granulation tissue, no erythema no swelling no active discharge. Neurological exam: PRESENT: alert, awake, oriented to person, oriented to place, oriented to time, oriented to situation, CN II-XII grossly intact. ABSENT: motor sensory deficit Results Laboratory Results: WBC 7.1 10^3/uL (4.0-10.5) 08/19/19 06:05 RBC 3.18 10^6/uL (4.35-5.55) L 08/19/19 06:05 Hgb 9.3 g/dL (13.5-17.0) L 08/19/19 06:05 Hct 27.7 % (37.9-51.0) L 08/19/19 06:05 MCV 87 fl (80-97) 08/19/19 06:05 MCH 29.2 pg (27.0-33.4) 08/19/19 06:05 MCHC 33.5 g/dL (32.0-36.0) 08/19/19 06:05 RDW 13.1 % (11.5-14.0) 08/19/19 06:05 Plt Count 667 10^3/uL (150-450) H 08/19/19 06:05 Lymph % (Auto) Not Reportable 08/17/19 05:40 Nye % (Auto) Not Reportable 08/17/19 05:40 Eos % (Auto) Not Reportable 08/17/19 05:40 Baso % (Auto) Not Reportable 08/17/19 05:40 Absolute Neuts (auto) Not Reportable 08/17/19 05:40 Absolute Lymphs (auto) Not Reportable 08/17/19 05:40 Absolute Monos (auto) Not Reportable 08/17/19 05:40 Absolute Eos (auto) Not Reportable 08/17/19 05:40 Absolute Basos (auto) Not Reportable 08/17/19 05:40 Total Counted 100 08/17/19 05:40 Seg Neutrophils % Not Reportable 08/17/19 05:40 Seg Neuts % (Manual) 62 % (42-78) 08/17/19 05:40 Band Neutrophils % 1 % (3-5) L 08/14/19 18:03 Lymphocytes % (Manual) 29 % (13-45) 08/17/19 05:40 Monocytes % (Manual) 9 % (3-13) 08/17/19 05:40 Eosinophils % (Manual) 0 % (0-6) 08/17/19 05:40 Basophils % (Manual) 0 % (0-2) 08/17/19 05:40 Metamyelocytes % 1 % (0-1) 08/15/19 05:20 Abs Neuts (Manual) 6.5 10^3/uL (1.7-8.2) 08/17/19 05:40 Abs Lymphs (Manual) 3.0 10^3/uL (0.5-4.7) 08/17/19 05:40 Abs Monocytes (Manual) 0.9 10^3/uL (0.1-1.4) 08/17/19 05:40 Absolute Eos (Manual) 0.0 10^3/uL (0.0-0.6) 08/17/19 05:40 Abs Basophils (Manual) 0.0 10^3/uL (0.0-0.2) 08/17/19 05:40 Nucleated RBCs 1 /100 WBC (0) 08/15/19 05:20 Toxic Granulation SLIGHT 08/17/19 05:40 Toxic Vacuolation PRESENT 08/17/19 05:40 Clumped Platelets PRESENT 08/15/19 05:20 Platelet Comment INCREASED 08/17/19 05:40 Polychromasia SLIGHT 08/17/19 05:40 Hypochromasia SLIGHT 08/14/19 18:03 Poikilocytosis SLIGHT 08/17/19 05:40 Tear Drop Cells SLIGHT 08/17/19 05:40 Ovalocytes SLIGHT 08/17/19 05:40 RBC Morph Comment NORMO-CYTIC/CHROMIC 08/10/19 19:40 PT 14.5 SEC (11.4-15.4) 08/10/19 12:00 INR 1.12 08/10/19 12:00 VBG pH 7.50 (7.30-7.42) H 08/10/19 12:00 VBG pCO2 36.0 mmHg (35-63) 08/10/19 12:00 VBG HCO3 27.1 mmol/L (20-32) 08/10/19 12:00 VBG Base Excess 4.1 mmol/L 08/10/19 12:00 Sodium 139.3 mmol/L (137-145) 08/17/19 05:40 Potassium 4.4 mmol/L (3.6-5.0) 08/17/19 05:40 Chloride 104 mmol/L (98-107) 08/17/19 05:40 Carbon Dioxide 29 mmol/L (22-30) 08/17/19 05:40 Anion Gap 6 (5-19) 08/17/19 05:40 BUN 7 mg/dL (7-20) 08/17/19 05:40 Creatinine 1.08 mg/dL (0.52-1.25) 08/17/19 05:40 Est GFR ( Amer) > 60 (>60) 08/17/19 05:40 Est GFR (MDRD) Non-Af > 60 (>60) 08/17/19 05:40 Glucose 103 mg/dL (75-110) 08/17/19 05:40 POC Glucose 93 mg/dL (70-110) 08/19/19 07:48 Hemoglobin A1c % 6.7 % (4.7-6.0) H 08/11/19 04:43 Lactic Acid 3.8 mmol/L (0.7-2.1) H 08/10/19 19:40 Calcium 8.5 mg/dL (8.4-10.2) 08/17/19 05:40 Magnesium 2.4 mg/dL (1.6-2.3) H 08/14/19 05:46 Total Bilirubin 0.6 mg/dL (0.2-1.3) 08/11/19 04:43 Direct Bilirubin 0.4 mg/dL (0.0-0.4) 08/11/19 04:43 Neonat Total Bilirubin Not Reportable 08/11/19 04:43 Neonat Direct Bilirubin Not Reportable 08/11/19 04:43 Neonat Indirect Bili Not Reportable 08/11/19 04:43 AST 23 U/L (17-59) 08/11/19 04:43 ALT 15 U/L (<50) 08/11/19 04:43 Alkaline Phosphatase 67 U/L (38-126) 08/11/19 04:43 Total Protein 5.1 g/dL (6.3-8.2) L 08/11/19 04:43 Albumin 2.3 g/dL (3.5-5.0) L 08/11/19 04:43 Triglycerides 123 mg/dL (<150) 08/11/19 04:43 Cholesterol 82.17 mg/dL (0-200) 08/11/19 04:43 LDL Cholesterol Direct 46 mg/dL (<100) 08/11/19 04:43 VLDL Cholesterol 25.0 mg/dL (10-31) 08/11/19 04:43 HDL Cholesterol 12 mg/dL (>40) L 08/11/19 04:43 Vitamin D 25-Hydroxy < 12.8 ng/mL (14.7-68.3) L 08/16/19 05:15 TSH 2.50 uIU/mL (0.47-4.68) 08/12/19 10:59 PTH Intact 52.3 pg/mL (10.0-65.0) 08/12/19 10:59 Urine Color STRAW 08/16/19 17:50 Urine Appearance CLEAR 08/16/19 17:50 Urine pH 6.0 (5.0-9.0) 08/16/19 17:50 Ur Specific [place] 1.006 08/16/19 17:50 Urine Protein NEGATIVE mg/dL (NEGATIVE) 08/16/19 17:50 Urine Glucose (UA) NEGATIVE mg/dL (NEGATIVE) 08/16/19 17:50 Urine Ketones NEGATIVE mg/dL (NEGATIVE) 08/16/19 17:50 Urine Blood NEGATIVE (NEGATIVE) 08/16/19 17:50 Urine Nitrite NEGATIVE (NEGATIVE) 08/16/19 17:50 Urine Bilirubin NEGATIVE (NEGATIVE) 08/16/19 17:50 Urine Urobilinogen NEGATIVE mg/dL (<2.0) 08/16/19 17:50 Ur Leukocyte Esterase NEGATIVE (NEGATIVE) 08/16/19 17:50 Urine WBC (Auto) 1 /HPF 08/16/19 17:50 Urine RBC (Auto) 0 /HPF 08/16/19 17:50 Urine Mucus (Auto) RARE /LPF 08/16/19 17:50 Urine Ascorbic Acid NEGATIVE (NEGATIVE) 08/16/19 17:50 Time Trough Drawn 0546 08/14/19 05:46 Vancomycin Trough 20.4 ug/mL (5.0-20.0) H 08/14/19 05:46 Impressions: Upper Extremity CT 08/10/19 12:35 IMPRESSION: Diffuse skin thickening and subcutaneous edema involving the right insula, medial right upper arm, and right lateral chest wall. No focal drainable abscess or underlying bone lesion. Guidance Fluoroscopy 08/14/19 00:00 IMPRESSION: Successful placement of a 5 [place] double lumen PICC via the left brachial vein utilizing fluoroscopic and sonographic guidance. Interventional Vascular Procedure 08/14/19 00:00 IMPRESSION: Successful placement of a 5 [place] double lumen PICC via the left brachial vein utilizing fluoroscopic and sonographic guidance. PICC Line Insertion 08/14/19 00:00 IMPRESSION: Successful placement of a 5 [place] double lumen PICC via the left brachial vein utilizing fluoroscopic and sonographic guidance. Stroke Is this a Stroke Patient?: No Acute Heart Failure - Is this a Heart Failure Patient?: No
== END 2019-08-19 11:10 | disposition home health service (06) | DRG 853 ==
LOC: ER 11:37 → EH 14:18 → 3N 19:25
PROVIDERS: ADMIT Internal Medicine; ATTEND Internal Medicine
PROC: 0J9D0ZZ Drainage of Right Upper Arm Subcutaneous Tissue and Fascia, Open Approach (ICD-10-PCS; 2019-08-10)
PROC: 0W980ZZ Drainage of Chest Wall, Open Approach (ICD-10-PCS; 2019-08-10)
PROC: 0K970ZZ Drainage of Right Upper Arm Muscle, Open Approach (ICD-10-PCS; principal; 2019-08-13 14:30)
PROC: 02HV33Z Insertion of Infusion Device into Superior Vena Cava, Percutaneous Approach (ICD-10-PCS; 2019-08-14)
PROC: 3E02340 Introduction of Influenza Vaccine into Muscle, Percutaneous Approach (ICD-10-PCS; 2019-08-19)
DX: A41.01 Sepsis due to Methicillin susceptible Staphylococcus aureus (principal); M72.6 Necrotizing fasciitis; N17.9 Acute kidney failure, unspecified; E87.1 Hypo-osmolality and hyponatremia; L02.411 Cutaneous abscess of right axilla; L03.113 Cellulitis of right upper limb; E11.9 Type 2 diabetes mellitus without complications; E66.9 Obesity, unspecified; M10.9 Gout, unspecified; Z68.34 Body mass index [BMI] 34.0-34.9, adult; Z79.84 Long term (current) use of oral hypoglycemic drugs; Z23 Encounter for immunization
CPT/HCPCS: 01610; 01810; 36415; 36569; 76937; 77001; 80048; 80053; 80061; 80202; 81001; 82306; 82803; 82962; 83036; 83605; 83735; 83970; 84443; 85025; 85027; 85610; 87040; 87070; 87075; 87077; 87186; 87205; 88305; 90686; 93005; 93010; 94799; 96361; 96365; 96367; 96375; 99291; J0330; J0610; J0690; J1170; J1642; J1650; J1815; J2250; J2405; J2543; J2704; J3010; J3370; J3490; J7030; J7050; J7060

== ENCOUNTER → 2019-09-26 | Outpatient (CLI) | payer OTHER ==
--- NOTE | 2019-09-26 18:27 | RADIOLOGY REPORT (SQ) ---
EXAM DESCRIPTION: VENOUS UNILATERAL UPPER COMPLETED DATE/TIME: 09/26/2019 5:02 pm REASON FOR STUDY: RUE SWELING/PAIN M79.601 PAIN IN RIGHT ARM COMPARISON: None. TECHNIQUE: Dynamic and static mcfarland scale and color images acquired of the right arm venous system. S elected spectral images acquired with additional compression and augmentation maneuvers. The contrala teral subclavian vein and internal jugular vein were also imaged. Images stored on PACS. LIMITATIONS: None. FINDINGS: INTERNAL JUGULAR VEIN: Normal phasicity, compression, augmentation. No visualized echogeni c material on mcfarland scale. No defects on color images. Comparison opposite side normal. SUBCLAVIAN VEIN: Normal compression, augmentation. No visualized echogenic material on mcfarland scale. No defects on color images. AXILLARY VEIN: Normal compression, augmentation. No visualized echogenic material on mcfarland scale. No d efects on color images. BRACHIAL VEIN: Normal compression, augmentation. No visualized echogenic material on mcfarland scale. No d efects on color images. BASILIC VEIN: Normal compression, augmentation. No visualized echogenic material on mcfarland scale. No de fects on color images. CEPHALIC VEIN: Normal compression, augmentation. No visualized echogenic material on mcfarland scale. No d efects on color images. OTHER: No other significant finding. CONTRALATERAL SUBCLAVIAN VEIN AND INTERNAL JUGULAR VEIN: Normal phasicity, compression and augmentation. No visualized echogenic material on mcfarland scale. No de fects on color images. IMPRESSION: NO EVIDENCE DVT OR SVT RIGHT ARM. TECHNICAL DOCUMENTATION: JOB ID: [id number] 2011 [employer]- All Rights Reserved Reading location - IP/workstation name: [email or web address]
== END ==
LOC: SP 12:57
PROVIDERS: ATTEND Surgery
DX: M79.601 Pain in right arm (principal)
CPT/HCPCS: 93971